=== PATIENT | female | born 1960 ===

== ENCOUNTER 2023-01-03 20:41 | Emergency (ER) | payer MEDICARE, SELFPAY ==
[2023-01-03 20:43] VITALS: BP 126/97; PULSE 108; RESP 20; TEMP 36.4; O2SAT 97
--- OUTSIDE RECORDS SUMMARY | 2023-01-03 20:59 | XMS_ITS | Continuity of Care Document ---
Author Name Unknown Address [address] [place] [address] Phone [facility] Address [address] [place] [address] Phone Care Team Providers Care Selling Underwriter Name Role Phone Rajinder Tavera Primary Care Provider [phone] Rajinder Tavera Family Provider E/R Physician, E Emergency Provider Unavailable Chief Complaint and Reason for Visit Chief Complaint SORE ALL OVER Allergies, Adverse Reactions, Alerts Allergen Type Severity Reaction Last Updated Verified Status Penicillins Allergy Unknown UNKNOWN August 23, 2019 3:39pm Yes Active Social History Smoking Status Status Start Date End Date Date of Observa tion Ex-smoker (finding) August 4:33pm Additional Data Assigned Sex Female Problems Active Problems Medical Problem Onset Date Status Rheumatoid arthritis flare Activ e Inactive/Resolved Problems Medical Problem Onset Date Status Abdominal pain Resolved Medications Medication Status Dose Units Route Directions Qty Days Start Matt e End Date Instructions Prednisone Active 10 MG PO .SEELABEL Jan 8:16am Day 1-2: 4 tabs by mouth. Day 3-4: 3 tabs daily. Day 5-6: 2 tabs daily. Day 7-8: 1 tab daily Tramadol Active 50 MG PO EVERY 6 HOURS February 13, 2021 8:16am Partial fill available on patient request. Vital Signs Vital Reading Result Reference Range Collection Date/Time Height 149.86 cm February 13, 2021 3:06am Weight 95.25 kg November 29th, 2021 3:06am Body Temperature 98.9 [degF] 97.6-99.6 February 132020 3:06am Heart Rate 82 /min 60-90 February 13, 2021 3:06am Respiratory rate 20 /min 12-24 February 132020 3:06am Oxygen saturation by Pulse oximetry 98 % 95-100 February 13, 2021 3:06am BP Systolic 136 mm[Hg] 90-140 February 13, 2021 3:06am BP Diastolic 96 mm[Hg] 60-90 February 13, 2021 3:06am BMI (Body Mass Index) 42.4 kg/m2 Novemb er 2020 3:06am Advance Directives Advance Directive Response Recorded Date/ Time Advance Directives No January 3:30am Health Care Proxy No February 13, 2021 3:30am Insurance Providers Guarantor Tasha Alexander Address [address] [place], [place] [id number] Contact Info. Home Phone: Payer Policy Id Coverage Id Subscriber's Name Subscriber Id Effective Date Expiration Date [facility] (Out of State) [facility] Health Safety Net - Partial [id number] 2016 [facility] [id number] [facility] [id number] [facility] Plans Medicaid [facility] No PSYCHIATRIC [id number] Tasha Alexander [id number] Medicare A&B [id number] Tasha Alexander [id number] 1988 Self Pay Self N/A Encounters Encounter Location(s) Arrival/Admit Date Discharge/Depart Date Provider(s) Departed Emergency [facility]-Emergency Dept February 13, 2021 2:36am February 13, 2021 8:21am null Plan of Treatment Future Tests Future scheduled test information is unavailable Pending Tests Pending diagnostic test information is unavailable Future Visits Future appointment information is unavailable Referrals to Other Providers Reason for Referral Referral Start Date Provider Provider Contact Information Provider Address Rajinder Tavera MD Work Phone: [address] [facility] [place] [address] Future Procedures Future procedure information is unavailable Future Medications Future medication information is unavailable Patient Instructions ED Rheumatoid Arthritis Goals Acute Goals Please return here for sympt oms worsen Please return here immediately for developed chest pain or shortness of breath If you develop fever/chills You popped today to have a prescription for steroids, and some pain medication No driving, medication prescribed are narcotics any make you drowsy Hemoptysis today to be discharged home without seeing a physician The option to have blood work, and another further evaluations by a physician however he politely declined and wished to return home. Even appointment with the negotiations director on March 16, you will call to see if you can expedite that appointment sooner
--- OUTSIDE RECORDS SUMMARY | 2023-01-03 20:59 | XMS_ITS | Continuity of Care Document ---
Author Name Unknown Address [address] [place] [address] Phone [facility] Address [address] [place] [address] Phone Care Team Providers Care Medical Billing Coder Name Role Phone Rajinder Tavera Primary Care Provider [phone] Rajinder Tavera Family Provider MD Edilia Wiggins Attending Provider [phone] Hospitalist, Model (IS ONLY) Emergency Provider Unavailable MD Clarence Robles Attending Provider Chief Complaint and Reason for Visit Chief Complaint DIARRHEA COPD EXACERBATION,TIFFANY,STARVATION KETOACIDOSIS Reason for Visit Acute viral syndrome TIFFANY (acute kidney injury) Hypokalemia Hypomagnesemia Allergies, Adverse Reactions, Alerts Allergen Type Severity Reaction Last Updated Verified Status Penicillins Allergy Unknown UNKNOWN August 19, 2021 9:26pm Yes Active amlodipine Allergy Unknown August 19, 2021 9:26pm Yes Active lisinopril Allergy Unknown August 19, 2021 9:26pm Yes Active valsartan Allergy Unknown August 19, 2021 9:26pm Yes Active Social History Smoking Status Status Start Date End Date Date of Observa tion Ex-smoker (finding) August 3:09am Observation Status Observation Response Date of Response Lives With Family August 20, 2021 3 :09am Additional Data Assigned Sex Female Problems Active Problems Medical Problem Onset Date Status TIFFANY (acute kidney injury) Active Acute viral syndrome Active Hypokalemia Active Hypomagnesemia Active Inactive/Resolved Problems Medical Problem Onset Date Status Rheumatoid arthritis flare Resol tessie Abdominal pain Resolved Medications Medication Status Dose Units Route Directions Qty Days St art Date End Date Instructions Prednisone Active 10 MG PO .SEELABEL Jan 1:00am Day 1-2: 4 tabs by mouth. Day 3-4: 3 tabs daily. Day 5-6: 2 tabs daily. Day 7-8: 1 tab daily Tramadol Active 50 MG PO EVERY 6 HOURS February 13, 2021 1:00am Partial fill available on patient request. Loperamide (Imodium) 2 mg Capsule Active 2 MG PO FOUR TIMES DAILY August 07, 2021 12:00am Lovastatin Active 1 TAB PO DAILY August 07, 2021 12:00am Triamterene-Hy drochlorothiaz id (Dyazide) 37.5-25 mg Capsule Active 1 CAP PO DAILY August 07, 2021 12:00am Pramipexole (Mirapex) 0.25 mg Tablet Active 0.25 MG PO DAILY August 07, 2021 12:00am Omeprazole Active 20 MG PO DAILY August 07, 2021 12:00am Mirtazapine Active 1 TAB PO ONCE JUDIE LY AT BEDTIME August 07, 2021 12:00am Cholestyramine (With Sugar) Active 1 PACKET PO TWICE A DAY August 07, 2021 12:00am Immunizations Immunization Event Date Not Given Reason Dose Number Angiography Nurse Lot Number Vaccine Information Statement (VIS) Detail COVID-19 J&J July 28, 2020 Procedures Procedure Date Performed Status Colonoscopy, Diag w/wo [place] (Not Applicabl e) August 07, 2021 10:20am completed EKG ED Electrocardiogram August 19, 2021 4:39pm c ompleted XR chest 1V August 19, 2021 4:39pm completed Coronavirus COVID-19 (LEXI) activ e Relevant Diagnostic Tests and/or Laboratory Data Laboratory Results Test Date/Time Result Interpretation Reference Range Result Comment Performing Site Add-On Test Request August 20, 2021 7:51am Added test [address] [address] White Blood Count August 20, 2021 5:06am 7.8 X10 3/uL 4.5-11.[address] [address] Red Blood Count August 20, 2021 5:06am 3.89 X10 6/uL 3.70-5.[address] [address] Hemoglobin August 20, 2021 5:06am 11.6 g/dl 11.0-16.[address] [address] Hematocrit August 20, 2021 5:06am 35.1 % 33.5-45.[address] [address] Mean Corpuscular Volume August 20, 2021 5:06am 90.2 fl 80.0-100.[address] [address] Mean Corpuscular Hemoglobin August 20, 2021 5:06am 29.8 pg 27.0-34.[address] [address] Mean Corpuscular Hemoglobin Concent August 20, 2021 5:06am 33.0 g/dl 31.0-36.[address] [address] Red Cell Distribution Width August 20, 2021 5:06am 13.2 % 11.5-15.[address] [address] Platelet Count August 20, 2021 5:06am 316 X10 3/uL 150-[address] [address] Immature Granulocyte % (Auto) August 20, 2021 5:06am 1.0 % [address] [address] Neutrophils (%) (Auto) August 20, 2021 5:06am 76.7 % [address] [address] Lymphocytes (%) (Auto) August 20, 2021 5:06am 11.7 % [address] [address] Monocytes (%) (Auto) August 20, 2021 5:06am 9.6 % [address] [address] Eosinophils (%) (Auto) August 20, 2021 5:06am 0.1 % [address] [address] Basophils (%) (Auto) August 20, 2021 5:06am 0.9 % [address] [address] Immature Granulocyte # (Auto) August 20, 2021 5:06am 0.08 X10 3/uL 0.00-0.[address] [address] Neutrophils # (Auto) August 20, 2021 5:06am 6.0 X10 3/uL 1.5-7.[address] [address] Lymphocytes # (Auto) August 20, 2021 5:06am 0.9 X10 3/uL 1.0-4.[address] [address] Monocytes # (Auto) August 20, 2021 5:06am 0.8 X10 3/uL 0.0-0.[address] [address] Eosinophils # (Auto) August 20, 2021 5:06am 0.0 X10 3/uL 0.0-0.[address] [address] Basophils # (Auto) August 20, 2021 5:06am 0.1 X10 3/uL 0.0-0.[address] [address] Hemoglobin A1c August 20, 2021 5:06am 9.1 4.3-5.[address] [address] Estimated Average Glucose (eAG) August 20, 2021 5:06am 214 mg/dl [address] [address] Nucleated Red Blood Cells % August 20, 2021 5:06am 0.0 /100 WBC 0.0-0.[address] [address] Urine Color August 20, 2021 12:04am Dark yellow Yellow [address] [address] Urine Clarity August 20, 2021 12:04am Turbid Clear [address] [address] Urine pH August 20, 2021 12:04am 5.5 5.0-8.[address] [address] Urine Specific Br[place]ock August 20, 2021 12:04am 1.016 1.005-1.[address] [address] Urine Blood August 20, 2021 12:04am Moderate mg/dL Negative [address] [address] Urine Protein August 20, 2021 12:04am 100 mg/dL Negative [address] [address] Urine Glucose (UA) August 20, 2021 12:04am Negative mg/dl Negative [address] [address] Urine Ketones August 20, 2021 12:04am Trace mg/dL Negative [address] [address] Urine Nitrate August 20, 2021 12:04am Negative Negative [address] [address] Urine Bilirubin August 20, 2021 12:04am Negative mg/dL Negative [address] [address] Urine Urobilinogen August 20, 2021 12:04am 1.0 E.U./dL Normal [address] [address] Urine Leukocyte Esterase August 20, 2021 12:04am Large mg/dL Negative [address] [address] Urine RBC (Auto) August 20, 2021 12:04am Not Reportable [address] [address] Urine WBC (Auto) August 20, 2021 12:04am Not Reportable [address] [address] Urine Epithelial Cells (Auto) August 20, 2021 12:04am Not Reportable [address] [address] Urine Casts (Auto) August 20, 2021 12:04am Not Reportable [address] [address] Urine Bacteria (Auto) August 20, 2021 12:04am Many /HPF None Seen [address] [address] Urine RBC August 20, 2021 12:04am 3-5 /HPF 0-[address] [address] Urine WBC August 20, 2021 12:04am >50 /HPF 0-[address] [address] Urine Squamous Epithelial Cells August 20, 2021 12:04am 0-5 /HPF 0-[address] [address] Urine Hyaline Casts August 20, 2021 12:04am None seen /LPF None Seen [address] [address] Sodium Level August 20, 2021 5:06am 130 mmol/L 137-[address] [address] Potassium Level August 20, 2021 5:06am 3.6 mmol/L 3.5-5.[address] [address] Chloride Level August 20, 2021 5:06am 91 mmol/L 98-[address] [address] Carbon Dioxide Level August 20, 2021 5:06am 25 mmol/L 23-[address] [address] Anion Gap August 20, 2021 5:06am 14 mmol/L 5-[address] [address] Blood Urea Nitrogen August 20, 2021 5:06am 12 mg/dl - [address] [address] Creatinine August 20, 2021 5:06am 0.9 mg/dL 0.5-1.[address] [address] Estimated Creatinine Clearance August 20, 2021 5:06am Pharmacy Intake Coordinator CRCL Not calculated, Ht < 5ft [address] [address] Estimated GFR () August 20, 2021 5:06am 81 >[address] [address] Estimated GFR (Non- August 20, 2021 5:06am 70 >[address] [address] BUN/Creatinine Ratio August 20, 2021 5:06am 13.3 10.0-20.[address] [address] Glucose Level August 20, 2021 5:06am 263 mg/dL 70-[address] [address] Calcium Level August 20, 2021 5:06am 8.5 mg/dl 8.6-10.[address] [address] Magnesium Level August 20, 2021 5:06am 2.1 mg/dL 1.8-2.[address] [address] Total Bilirubin August 19, 2021 6:10pm 0.5 mg/dl <1.[address] [address] Direct Bilirubin August 19, 2021 6:10pm < 0.2 mg/dl <0.[address] [address] Aspartate Amino Transf (AST/SGOT) August 19, 2021 6:10pm 27 U/L 15-[address] [address] Alanine Aminotransferase (ALT/SGPT) August 19, 2021 6:10pm 16 U/L 14-[address] [address] Troponin T High Sensitivity August 19, 2021 8:01pm 14 ng/L <8 Normal range: Females <9 ng/L Males <14 ng/L Values greater than or equal to 52 ng/L indicates acute myocardial injury/infar ction Values between '10 and 51 ng/L' (for females) or '15 and 51 ng/L' (for males) require clinical correlation and is not diagnostic of acute myocardial injury. Consider repeat at 1 and 3 hours. A dynamic increase of ? greater than 5 ng/L? at 1 hour or 3 hours indicates of acute myocardial injury/infar ction. For a patient with an estimated GFR of less than 30 mL/min/1.73 m2 or receiving dialysis, a dynamic increase of greater than 20% at 3 hours indicates acute myocardial injury. A value of less than 9 ng/L (in females) or less than 14 ng/L (in males) with a dynamic change of less than 3 ng/L, greater than 3 hours after symptom onset, generally rules out acute myocardial injury/infar ction. Refer to Chest Pain order sets for additional clinical decision support (using the HEART score for the ED or the DAVIS score for the inpatient setting). [address] [address] Total Protein August 19, 2021 6:10pm 6.9 g/dL 6.4-8.[address] [address] Albumin August 19, 2021 6:10pm 3.6 g/dl 4.0-5.[address] [address] Albumin/Globulin Ratio August 19, 2021 6:10pm 1.1 1.0-2.[address] [address] Alkaline Phosphatase August 19, 2021 6:10pm 92 U/L 35-[address] [address] Lipase August 19, 2021 6:10pm 15 U/L 13-[address] [address] Thyroid Stimulating Hormone (TSH) August 20, 2021 5:06am 1.33 uIU/mL 0.34-5.[address] [address] Venous Blood pH August 20, 2021 12:06am 7.48 7.32-7.[address] [address] Diagnostic Imaging Reports Report Dictated Date/Time Dictated By Status Radiology Report August 19, 2021 5:00pm Siobhan Schrader MD completed [address] [address] Patient Name: Tasha Alexander Medical Record#: [id number] Address: [address] City/State/Zip: [place] [id number] Attending Dr: Ferny E/R Nevin tiwari Insurance: Medicare A&B /Age/Sex: 1960/61/F [facility] No PCC Admit/Reg Date: 08/19/[address]: Martin Scruggs MD Location: ED.GS/ PCP: Rajinder Tavera Date of Service: 08/19/21 Order (s): XR chest 1V CPT Code: 04688 Report Number: [id number] Reason for Exam: Chest Pain INDICATION:Chest Pain AP CHEST: Cardiac and mediastinal contours are normal. The lungs appear clear. There are no pleural effusions or pneumothoraces. Osseous structures are unremarkable. IMPRESSION: No evidence of acute cardiopulmonary disease. Dictated By: Siobhan Schrader MD 08/19/211699 Signed By: Siobhan Schrader MD 08/19/211703 TD/TT: 08/19/211699Tech: [id number] cc: E/R; CK PRYOR* E/R Physician,Ferny ; Martin Scruggs MD; Rajinder Tavera MD Report Dictated Date/Time Dictated By Status Electrocardiogram August 19, 2021 4:43pm Amanda Frey MD completed [facility] [address] [place] [address] Patient Name: Tasha Alexander Medical Record#: [id number] Address: [address] City/State/Zip: [place] [address]: Clarence Robles MD Insurance: Medicare A&B /Age/Sex: 1960/61/F [facility] No PCC Admit/Reg Date: 08/19/[address]: Martin Scruggs MD Location: 3B./[id number] PCP: Soodan,Rajinder Date of Service: 08/19/21 Order (s): EKG ED Electrocardiogram CPT Code: 84682 Report Number: [id number] Reason for Exam: Chest Pain SINUS TACHYCARDIA PROBABLE INFERIOR INFARCT, AGE INDETERMINATE CONSIDER POSTERIOR WALL INVOLVEMENT Dictated By: Amanda Frey MD 08/19/211642 Signed By: Amanda Frey MD 08/20/21 0947 TD/TT: 08/19/211642Tech: [id number] cc: JAZMINE; ROYA* Martin Scruggs MD; Rajinder Tavera MD Vital Signs Vital Reading Result Reference Range Collection Date/Time Height 149.86 cm August 07, 2021 10:22am Weight 97.97 kg August 07, 2021 10:22am Body Temperature 97.5 [degF] 97.6-99.6 August 07, 2 022 10:28am Heart Rate 97 /min 60-90 August 07, 2021 11:41am Respiratory rate 20 /min 12-August 07, 2 022 11:41am Oxygen saturation by Pulse oximetry 96 % 95-100 August 07, 2021 11:41 am BP Systolic 106 mm[Hg] 90-140 August 07, 2021 11:41am BP Diastolic 71 mm[Hg] 60-90 August 07, 2021 11:41am BMI (Body Mass Index) 43.6 kg/m2 August 072021 10:22am Height 149.86 cm August 19, 2021 4:14pm Weight 95.25 kg August 19, 2021 4:14pm Body Temperature 98.1 [degF] 97.6-99.6 August 19, 2 022 4:14pm Heart Rate 84 /min 60-90 August 20, 2021 7:27am Respiratory rate 16 /min -August 20, 2 022 7:27am Oxygen saturation by Pulse oximetry 95 % 95-100 August 20, 2021 7:27a m BP Systolic 110 mm[Hg] 90-140 August 20, 2021 7:27am BP Diastolic 77 mm[Hg] 60-90 August 20, 2021 7:27am BMI (Body Mass Index) 42.4 kg/m2 August 192021 4:14pm Advance Directives Advance Directive Response Recorded Date/ Time Advance Directives No January 4:30am Health Care Proxy No February 13, 2021 4:30am Advance Directives No February 6:12pm Health Care Proxy No March 16, 2021 6:12pm Advance Directives No July 27 2:38pm Health Care Proxy No July 27, 2021 2:38pm Advance Directives No August 19 5:40pm Health Care Proxy No August 19, 2021 5:40pm Insurance Providers Guarantor Tasha Alexander Address [address] [place] [id number] Contact Info. Home Phone: Payer Policy Id Coverage Id Subscriber's Name Subscriber Id Effective Date Expiration Date [facility] (Out of State) [facility] Health Safety Net - Partial [id number] 2016 [facility] [id number] [facility] [id number] [place] [facility] Medicaid [facility] No [facility] [id number] Tasha Alexander [id number] Medicare A&B [id number] Tasha Alexander [id number] 1988 Self Pay Self N/A Encounters Encounter Location(s) Arrival/Admit Date Discharge/Depart Date Provider(s) Departed Surgical Day Care [facility]-Endoscopy August 07, 2021 9:41am August 07, 2021 11:59am Edilia Wiggins MD Admitted Inpatient [facility]-3B August 19, 2021 11:34pm Clarence Robles MD Recent Diagnosis Onset Date Acute viral syndrome TIFFANY (acute kidney injury) Hypokalemia Hypomagnesemia Assessments Diagnosis Onset Date Resolution Status Acute viral syndrome acute TIFFANY (acute kidney injury) ac tribe Hypokalemia acute Hypomagnesemia acute Plan of Treatment Future Tests Future scheduled test information is unavailable Pending Tests Test Name Date ordered Magnesium August 20, 2021 7:51a m VTE Risk Assessment Medical August 19 11:33pm Future Visits Future appointment information is unavailable Referrals to Other Providers Reason for Referral Referral Start Date Provider Provider Contact Information Provider Address Rajinder Tavera MD Work Phone: [address] [facility] [address] Rajinder Tavera MD Work Phone: [address] [facility] [address] Future Procedures Procedure Name Scheduled Date Discharge Per Same Day Surgery Criteria August 07, 2021 11:59am Peripheral IV Insert/Manage August 07 10:19am Hospital Level of Care August 19, 2021 11 :34pm Activity August 19, 2021 11:33 pm Basic Metabolic Panel August 21, 2021 6:0 0am Code Status August 19, 2021 11:33 pm Add Hypoglycemia Protocol Orders August 7:44am Peripheral IV Insert/Manage August 19 11:33pm Saline Lock Insert/Manage August 19, 2021 4:39pm Notify Provider August 20, 2021 7:44a m Oxygen Initiate/Maintain August 19, 2021 4:39pm Patient Preference for Pain Management J 2021 11:34pm Provider Order to Nurse August 20, 2021 5 :02am Continuous Pulse Oximetry August 19, 2021 4:39pm Sequential Compression Device August 19, 2021 11:34pm Future Medications Future medication information is unavailable Patient Instructions ED Rheumatoid Arthritis Goals Acute Goals Potential for Anxiety Knowledge Deficit Pt reports/exhibits pain at sharee level Including: - Pain controlled by pharmacological/non-pharmacological means - Establish realistic pain and function goals prior to initiating opioid therapy in patients with chronic pain if applicable - Discuss known risks and realistic benefits of opioid therapy Knowledge Deficit-Discharge Instruction Alteration in Hemodynamics Potential for Infection Potential for Surgical Injur y Risk for Impaired Skin Integ rity Patent airway Including: - Secretion management strategies Effective breathing pattern Including: - Able to speak in full sentences as age appropriate - Absence of accessory muscle use (retractions), shallow breathing, dyspnea, wheezing & tachypnea - Facilitate optimal positioning - maximize effective breathing & prevent exacerbation Adequate gas exchange Absence of: - Abnormal arterial blood gases - Decreased breath sounds/apnea/cyanosis - Grunting/nasal flaring - Increased respiratory effort/rate - Chest retractions Improved activity tolerance Including: - Progressing activity toward baseline - Understands energy conservation management - Physical/Occupational therapy if appropriate Understand Mgmt Strategy-HERBARIUM CURATOR D Patient/caregiver understands: - Pathophysiology - Reportable s/s & worsening symptoms - Treatment plan, post discharge follow up & when to seek medical care - Medication regime, compliance, dietary & lifestyle modification - technician terminal and repeater plan for care and housing and/or End of life preparations if applicable Safely transition to next le yaw of care Patient/family has: - Appropriate access to resources and support services as applicable Pt reports/exhibits pain at sharee level Including: - Pain controlled by pharmacological/non-pharmacological means - Discuss known risks and realistic benefits of opioid therapy Absence of fluid/electrolyte imbalance Including: - Improved lab values - Adequate urine output - Adequate hydration - Stable weight if appropriate Bowel elimination within spe c parameter Including: - Improved stool consistency and pattern - Hemodynamic stablity - Improved hydration/electrolyte balance - Knowedgeable in self management Absence of nausea/vomiting Including: - [place] foods, cool liquids, dry foods and high-carbohydrate diet - Small, frequent meals - Restrict dairy products Adequate nutritional intake Including: - Adequate nutritional intake - Nutritional plan per dietitian if applicable Understand Mgmt Strategy-Gas troenteritis Patient/caregiver understands: - Anatomy & physiology - Reportable s/s and when to seek medical care - Treatment plan including environmental hygiene - Medication regime and dietary modification Safely transition to next le yaw of care Patient/family has: - Appropriate access to resources and support services as applicable
--- OUTSIDE RECORDS SUMMARY | 2023-01-03 20:59 | XMS_ITS | Continuity of Care Document ---
Author Name Unknown Address [address] [place] [address] Phone [facility] Address [address] [place] [address] Phone Support Name Relationship Address Phone Nithin Alexander Spouse [address] [place] [address] Rajinder Tavera Primary Care Provider [address] [place] [address] Martin Scruggs Emergency Provider [address] [facility]/ [place] [address] Allergies, Adverse Reactions, Alerts Allergen Type Severity Reaction Last Updated Verified Status Penicillins Allergy Unknown UNKNOWN August 23, 2019 Yes Activ e Medications No medication information available. Problems Active Problems Medical Problem Onset Date Status Abdominal pain Active Procedures Procedure Date Performed Status CT abdomen pelvis w con August 23, 2019 complete d EKG ED Electrocardiogram August 23, 2019 active Relevant Diagnostic Tests and/or Laboratory Data Laboratory Results Test Date/Time Result Interpretation Reference Range Result Comment Performing Site White Blood Count August 23, 2019 4:10pm 9.6 X10 3/uL 4.5-11.0 [facility], [address] [place] [address] Red Blood Count August 23, 2019 4:10pm 4.88 X10 6/uL 3.70-5.00 [facility], [address] [place] [address] Hemoglobin August 23, 2019 4:10pm 14.3 g/dl 11.0-16.[address] [address] Hematocrit August 23, 2019 4:10pm 43.7 % 33.5-45.0 [address] [place] [address] Mean Corpuscular Volume August 23, 2019 4:10pm 89.5 fl 80.0-100.[address] [address] Mean Corpuscular Hemoglobin August 23, 2019 4:10pm 29.3 pg 27.0-34.[address] [address] Mean Corpuscular Hemoglobin Concent August 23, 2019 4:10pm 32.7 g/dl 31.0-36.[address] [address] Red Cell Distribution Width August 23, 2019 4:10pm 11.9 % 11.5-15.[address] [address] Platelet Count August 23, 2019 4:10pm 348 X10 3/uL 150-[address] [address] Immature Granulocyte % (Auto) August 23, 2019 4:10pm 0.6 % [facility], [address] [place] [address] Neutrophils (%) (Auto) August 23, 2019 4:10pm 55.9 % [address] [address] Lymphocytes (%) (Auto) August 23, 2019 4:10pm 31.8 % [address] [address] Monocytes (%) (Auto) August 23, 2019 4:10pm 9.0 % [address] [address] Eosinophils (%) (Auto) August 23, 2019 4:10pm 1.7 % [facility], [address] [place] [address] Basophils (%) (Auto) August 23, 2019 4:10pm 1.0 % [address] [address] Immature Granulocyte # (Auto) August 23, 2019 4:10pm 0.06 X10 3/uL 0.00-0.[address] [address] Neutrophils # (Auto) August 23, 2019 4:10pm 5.4 X10 3/uL 1.5-7.8 [facility], [address] [place] [address] Lymphocytes # (Auto) August 23, 2019 4:10pm 3.1 X10 3/uL 1.0-4.8 [facility], [address] [place] [address] Monocytes # (Auto) August 23, 2019 4:10pm 0.9 X10 3/uL 0.0-0.8 [facility], [address] [place] [address] Eosinophils # (Auto) August 23, 2019 4:10pm 0.2 X10 3/uL 0.0-0.5 [facility], [address] [place] [address] Basophils # (Auto) August 23, 2019 4:10pm 0.1 X10 3/uL 0.0-0.[address] [address] Nucleated Red Blood Cells % August 23, 2019 4:10pm 0.0 /100 WBC 0.0-0.0 [facility], [address] [place] [address] Urine Color August 23, 2019 4:50pm Straw Yellow [facility], [address] [place] [address] Urine Clarity August 23, 2019 4:50pm Clear Clear [facility], [address] [place] [address] Urine pH August 23, 2019 4:50pm 6.0 5.0-8.[address] [address] Urine Specific [place] August 23, 2019 4:50pm 1.008 1.003-1.03 0 [facility], [address] [place] [address] Urine Blood August 23, 2019 4:50pm Negative mg/dl Negative [address] [address] Urine Protein August 23, 2019 4:50pm Negative mg/dl Negative [address] [address] Urine Glucose (UA) August 23, 2019 4:50pm Negative mg/dl Negative [address] [address] Urine Ketones August 23, 2019 4:50pm Negative mg/dl Negative [facility], [address] [place] [address] Urine Nitrate August 23, 2019 4:50pm Negative Negative [facility], [address] [place] [address] Urine Bilirubin August 23, 2019 4:50pm Negative mg/dl Negative [facility], [address] [place] [address]268 Urine Urobilinogen August 23, 2019 4:50pm Normal mg/dl Normal [facility], [address] [place] [address] Urine Leukocyte Esterase August 23, 2019 4:50pm Negative Negative [facility], [address] [place] [address] Sodium Level August 23, 2019 4:10pm 139 mmol/L 137-146 [facility], [address] [place] [address] Potassium Level August 23, 2019 4:10pm 3.8 mmol/L 3.5-5.3 [facility], [address] [place] [address] Chloride Level August 23, 2019 4:10pm 98 mmol/L 98-107 [facility], [address] [place] [address] Carbon Dioxide Level August 23, 2019 4:10pm 28 mmol/L 23-32 [facility], [address] [place] [address] Anion Gap August 23, 2019 4:10pm 13 mmol/L 5-15 [facility], [address] [place] [address] Blood Urea Nitrogen August 23, 2019 4:10pm 15 mg/dl 5-25 [facility], [address] [place] [address] Creatinine August 23, 2019 4:10pm 0.9 mg/dL 0.5-1.[address] [address] Estimated Creatinine Clearance August 23, 2019 4:10pm 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 Unable to Calculate CRCL,Ht and/or Wt missing [facility], [address] [place] [address] Estimated GFR () August 23, 2019 4:10pm > 60 >[address] [address] Estimated GFR (Non- August 23, 2019 4:10pm > 60 >60 [place] [address] BUN/Creatinine Ratio August 23, 2019 4:10pm 16.7 10.0-20.0 [place] [address] Glucose Level August 23, 2019 4:10pm 217 mg/dL 70-100 [place] [address] Calcium Level August 23, 2019 4:10pm 9.5 mg/dl 8.6-10.3 [place] [address] Total Bilirubin August 23, 2019 4:10pm < 0.2 mg/dl <1.2 [place] [address] Aspartate Amino Transf (AST/SGOT) August 23, 2019 4:10pm 19 U/L 15-41 [place] [address] Alanine Aminotransferase (ALT/SGPT) August 23, 2019 4:10pm 21 U/L 14-54 [place] [address] Total Protein August 23, 2019 4:10pm 6.8 g/dL 6.4-8.3 [place] [address] Albumin August 23, 2019 4:10pm 3.9 g/dl 4.0-5.0 [place] [address] Albumin/Globulin Ratio August 23, 2019 4:10pm 1.3 1.0-2.6 [place] [address] Alkaline Phosphatase August 23, 2019 4:10pm 88 U/L 35-104 [place] [address] Bedside Urine HCG, Qualitative August 23, 2019 5:27pm Negative Negative This is only a screening test. Low HCG urine level (<20mIU/ml), in case of a early or dilution of urine, may not be detected with this test. Also high concentration of certain drugs may interfere. If suspicious of early or clinically necessary to confirm, a serum Beta-HCG quantitation test is suggested. [facility], [address] [facility] [address] Diagnostic Imaging Reports Report Dictated Date/Time Dictated By Status Radiology Report August 23, 2019 6:31pm Canelo Hameed MD completed [facility] [address] [place] [address] Patient Name: Tasha Alexander Medical Record#: [id number] Address: [address] [facility] City/State/Zip: [place] [id number] Attending Dr: Martin Scruggs MD Insurance: Medicare A&B /Age/Sex: 1960/59/F [employer] No PCC Admit/Reg Date: 08/23/[address]: Harmony Moseley NP Location: ED.[facility]/ PCP: Rajinder Tavera Date of Service: 08/23/19 Order (s): CT abdomen pelvis w con CPT Code: 06239 Report Number: [id number] Reason for Exam: rlq abd pain CT abdomen pelvis w con, 08/23/2019 5:51 PM Clinical history: rlq abd pain TECHNIQUE: Spiral CT of the abdomen and pelvis is performed with intravenous contrast. The patient received 90-ML of IV contrast. Additional delayed images are obtained through the abdomen. COMPARISON: 05/31/15 ABDOMINAL FINDINGS: The liver is diffusely low in attenuation. 3 cm left renal cyst is noted. The right intrarenal collecting system is duplicated. 2 right ureters are noted. The spleen, pancreas, and adrenal glands are unremarkable. The gallbladder is surgically absent. There is no retroperitoneal lymphadenopathy. The abdominal aorta is normal in course and caliber. PELVIC FINDINGS: There are no dilated loops of small bowel. There is prominent sigmoid diverticulosis. The appendix is normal. There is a small fat-containing right inguinal hernia. There is no free fluid or lymphadenopathy. The urinary bladder appears unremarkable. IMPRESSION: No evidence of acute pathology. Fatty infiltration of the liver. Left renal cyst. 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 Sigmoid diverticulosis. Small fat-containing right inguinal hernia. Automated exposure control and dose reduction techniques were utilized. Dictated By: Canelo Hameed MD 08/23/191830 Signed By: Canelo Hameed MD 08/23/191836 TD/TT: 08/23/191830Tech: [id number] cc: CHRIST; JAZMINE; ROYA* Martin Scruggs MD; Harmony Moseley, AYAN; Rajinder Tavera Advance Directives Advance Directive Response Recorded Date/ Time Advance Directives No August 22 0 8:27pm Health Care Proxy No August 23, 2019 8:27pm Chief Complaint and Reason for Visit Chief Complaint sent by urgent care, appendicitis? Encounters Encounter Location(s) Arrival/Admit Date Discharge/Depart Date Provider(s) Departed Emergency [facility] August 23, 2019 3:46pm August 23, 2019 7:56pm null Assessments No Assessments Information Available Functional Status No Functional Status information available Goals Goals may be documented in an alternate section. Mental Status No Mental Status Information Available Medical Equipment No Medical Equipment Information available Insurance Providers Guarantor Tasha Alexander Address [address] [facility] [address] Contact Info. Home Phone: Payer Policy Id Coverage Id Subscriber's Name Subscriber Id Effective Date Expiration Date [facility] Health Safety Net - Partial [id number] 2016 [facility] [id number] [facility] [id number] United [employer] Plans Medicaid [facility] [id number] Tasha Alexander [id number] Medicare A&B [id number] Tasha Alexander [id number] 1988 Self Pay Self N/A Plan of Treatment Future Tests Future scheduled test information is unavailable Pending Tests Pending diagnostic test information is unavailable Future Visits Future appointment information is unavailable Referrals to Other Providers Reason for Referral Referral Start Date Provider Provider Contact Information Provider Address Rajinder Tavera Work Phone: [address] [facility] [address] Future Procedures Future procedure information is unavailable Future Medications Future medication information is unavailable Patient Instructions Abdominal Pain Social History Smoking Status Status Date of Observation Ex-smoker (finding) August 23, 2019 4:33p m Assigned Sex Female Vital Signs Vital Reading Result Reference Range Collection Date/Time Body Temperature 98.1 [degF] 97.6-99.6 August 22, 2 020 3:56pm Heart Rate 89 /min 60-90 August 23, 2019 3:56pm Respiratory rate 18 /min 12-24 August 22 020 3:56pm Oxygen saturation by Pulse oximetry 97 % 95-10 0 August 23, 2019 3:56pm BP Systolic 120 mm[Hg] 90-140 August 23, 2019 3:56pm BP Diastolic 96 mm[Hg] 60-90 August 23, 2019 3:56pm
--- OUTSIDE RECORDS SUMMARY | 2023-01-03 20:59 | XMS_ITS | Continuity of Care Document ---
Author Name Unknown Address [address] [place] [address] Phone [facility] Address [address] [place] [address] Phone Care Team Providers Care Ash Handler Name Role Phone Rajinder Tavera Primary Care Provider Rajinder Tavera Family Provider MD Edilia Wiggins Attending Provider [phone] Chief Complaint and Reason for Visit Chief Complaint DIARRHEA Allergies, Adverse Reactions, Alerts Allergen Type Severity Reaction Last Updated Verified Status Penicillins Allergy Unknown UNKNOWN August 07, 2021 10:17am Yes Active amlodipine Allergy Unknown August 07, 2021 10:17am Yes Active lisinopril Allergy Unknown August 07, 2021 10:17am Yes Active valsartan Allergy Unknown August 07, 2021 10:17am Yes Active Social History Smoking Status Status Start Date End Date Date of Observa tion Ex-smoker (finding) August 4:33pm Additional Data Assigned Sex Female Problems Inactive/Resolved Problems Medical Problem Onset Date Status [...] Event Date Not Given Reason Dose Number 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 Lot 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 Vaccine Information Statement (VIS) Detail COVID-19 [employer] July 28, 2020 Procedures Procedure Date Performed Status Colonoscopy, Diag w/wo Pound/Wash (Not Applicabl e) August 07, 2021 10:20am completed Vital Signs Vital Reading Result Reference Range [...] Mass Index) 43.6 kg/m2 August 072021 10:22am Advance Directives Advance Directive Response Recorded Date/ Time Advance Directives No January 4:30am Health Care Proxy No February 13, 2021 4:30am Advance Directives No February 6:12pm Health Care Proxy No March 16, 2021 6:12pm Advance Directives No July 27 2:38pm Health Care Proxy No July 27, 2021 2:38pm Insurance Providers Guarantor Tasha Alexander Address [address] [facility] [address] Contact Info. Home Phone: Payer Policy Id Coverage Id Subscriber's Name Subscriber Id Effective Date Expiration Date [employer] (Out of State) [facility] Health Safety Net - Partial [id number] 2016 [facility] [id number] [facility] [id number] [facility] [id number] Tasha Alexander [id number] Medicare A&B [id number] Tasha Alexander [id number] 1988 Self Pay Self N/A Encounters Encounter Location(s) Arrival/Admit Date Discharge/Depart Date Provider(s) Departed Surgical Day Care [facility] August 07, 2021 9:41am August 07, 2021 11:59am Edilia Wiggins MD Plan of Treatment Future Tests Future scheduled test information is unavailable Pending Tests Pending diagnostic test information is unavailable Future Visits Future appointment information is unavailable Referrals to Other Providers Reason for Referral Referral Start Date Provider Provider Contact Information Provider Address Rajinder Tavera MD Work Phone: [address] [facility] [address] Rajinder Tavera MD Work Phone: [address] [facility] [address] Future Procedures Procedure Name Scheduled Date Discharge Per Same Day Surgery Criteria August 07, 2021 11:59am Peripheral IV Insert/Manage August 07 10:19am Future Medications Future medication information is unavailable [...] Injur y Risk for Impaired Skin Integ evan
--- OUTSIDE RECORDS SUMMARY | 2023-01-03 20:59 | XMS_ITS | Continuity of Care Document ---
Author Name Unknown Address [address] [place] [address] Phone [facility] Address [address] [place] [address] Phone Care Team Providers Care [employer] Police Officer Name Role Phone Rajinder Tavera Primary Care Provider Rajinder Tavera Family Provider MD Edilia Wiggins Attending Provider Hospitalist, Model (IS ONLY) Emergency Provider Unavailable MD Clarence Robles Attending Provider MD Justin Bravo Other Provider MD Christian Chowdhury Other Provider [phone] Chief Complaint and Reason for Visit Chief Complaint DIARRHEA COPD EXACERBATION,TIFFANY,STARVATION KETOACIDOSIS Reason for Visit Acute viral syndrome TIFFANY (acute kidney injury) Diabetes mellitus Major depression Type 2 diabetes mellitus, uncontrolled Obesity, morbid, BMI 40.0-49.9 Hypokalemia Hypomagnesemia Hyponatremia Allergies, Adverse Reactions, Alerts Allergen Type Severity [...] Date of Observa tion Ex-smoker (finding) August 12:12pm Observation Status Observation Response Date of Response Is Anyone Dependent on your Care? No August 20, 2021 10:53am Living Situation Private Home August 21, 2021 8:05am Services Prior to Admission None August 21, 2021 12:12pm Lives With Parents August 21, 2021 1 2:12pm Additional Data Assigned Sex Female Family History Relationship Condition Age at Onset Recorded Date/T blayne mother Diabetes mellitus Unknown father Diabetes mellitus Unknown Problems Active Problems Medical Problem Onset Date Status TIFFANY (acute kidney injury) Active Major depression Active Diabetes mellitus Active Acute viral syndrome Active Type 2 diabetes mellitus, uncontrolled Active Obesity, morbid, BMI 40.0-49.9 A ctive Inactive/Resolved Problems Medical Problem Onset Date Status Hyponatremia Resolved Rheumatoid arthritis flare Resol tessie Abdominal pain Resolved Hypokalemia Resolved Hypomagnesemia Resolved Medications Medication Status Dose Units Route Directions Qty Days St art Date End Date Instructions Prednisone Discontin ued 10 MG PO .SEELABEL r 2020 1:00am August 20, 2021 10:29 am Day 1-2: 4 tabs by mouth. Day 3-4: 3 tabs daily. Day 5-6: 2 tabs daily. Day 7-8: 1 tab daily Tramadol Discontin ued 50 MG PO EVERY 6 HOURS r 2020 1:00am August 20, 2021 10:33 am Partial fill available on patient request. Loperamide Active 2 MG PO FOUR TIME S DAILY August 07, 2021 12:00am Lovastatin Active 1 TAB PO DAILY August 07, 2021 12:00am Triamterene-H ydrochlorothi azid Active 1 CAP PO DAILY August 07, 2021 12:00am Pramipexole (Mirapex) 0.25 mg Tablet Active 0.25 MG PO DAILY August 07, 2021 12:00am Omeprazole Active 20 MG PO DAILY August 07, 2021 12:00am Mirtazapine Active 1 TAB PO ONCE JUDIE LY AT BEDTIME August 07, 2021 12:00am Cholestyramin e (With Sugar) Active 1 PACKET PO TWICE A DAY August 07, 2021 12:00am prednisone Active 5 MG PO DAILY August 20, 2021 12:00am Dextromethorp mccarty-Guaifenes in Active 10 ML PO EVERY 6 HOURS 200 5 August 22, 2021 12:00am OTC/Good Rx if not covered Glipizide Active 5 MG PO DAILY August 22, 2021 12:00am Albuterol Sulfate Active 2 PUFF INH EVERY 4 HOURS 1 30 August 22, 2021 12:00am Good Rx if not covered Immunizations Immunization Event Date Not Given Reason Dose Number Home Health Aide Caregiver Lot Number Vaccine Information Statement (VIS) Detail COVID-19 J&J July 28, 2020 Procedures Procedure Date Performed Status Colonoscopy, Diag w/wo [place] (Not Applicabl e) August 07, 2021 10:20am completed EKG ED Electrocardiogram August 19, 2021 4:39pm c ompleted XR chest 1V August 19, 2021 4:39pm completed Urine Culture completed Coronavirus COVID-19 (LEXI) compl eted Relevant Diagnostic Tests and/or Laboratory Data Laboratory Results Test Date/Time Result Interpretation Reference Range Result Comment Performing Site Add-On Test Request August 20, 2021 2:03pm Added test [address] [address] White Blood Count August 20, 2021 5:06am 7.8 X10 3/uL 4.5-11.[address] [address] Red Blood Count August 20, 2021 5:06am 3.89 X10 6/uL 3.70-5.[address] [address] Hemoglobin August 20, 2021 5:06am 11.6 g/dl 11.0-16.[address] [address] Hematocrit August 20, 2021 5:06am 35.1 % 33.5-45.[address] [address] Mean Corpuscular Volume August 20, 2021 5:06am 90.2 fl 80.0-100.[address] [address] Mean Corpuscular Hemoglobin August 20, 2021 5:06am 29.8 pg 27.0-34.[address] [address] Mean Corpuscular Hemoglobin Concent August 20, 2021 5:06am 33.0 g/dl 31.0-36.[address] [address] Red Cell Distribution Width August 20, 2021 5:06am 13.2 % 11.5-15.[address] [address] Platelet Count August 20, 2021 5:06am 316 X10 3/uL 150-[address] [address] Immature Granulocyte % (Auto) August 20, 2021 5:06am 1.0 % [address] [address] Neutrophils (%) (Auto) August 20, 2021 5:06am 76.7 % [address] [address] Lymphocytes (%) (Auto) August 20, 2021 5:06am 11.7 % [address] [address] Monocytes (%) (Auto) August 20, 2021 5:06am 9.6 % [address] [address] Eosinophils (%) (Auto) August 20, 2021 5:06am 0.1 % [address] [address] Basophils (%) (Auto) August 20, 2021 5:06am 0.9 % [address] [address] Immature Granulocyte # (Auto) August 20, 2021 5:06am 0.08 X10 3/uL 0.00-0.[address] [address] Neutrophils # (Auto) August 20, 2021 5:06am 6.0 X10 3/uL 1.5-7.[address] [address] Lymphocytes # (Auto) August 20, 2021 5:06am 0.9 X10 3/uL 1.0-4.[address] [address] Monocytes # (Auto) August 20, 2021 5:06am 0.8 X10 3/uL 0.0-0.[address] [address] Eosinophils # (Auto) August 20, 2021 5:06am 0.0 X10 3/uL 0.0-0.[address] [address] Basophils # (Auto) August 20, 2021 5:06am 0.1 X10 3/uL 0.0-0.[address] [address] Hemoglobin A1c August 20, 2021 5:06am 9.1 4.3-5.[address] [address] Estimated Average Glucose (eAG) August 20, 2021 5:06am 214 mg/dl [address] [address] Nucleated Red Blood Cells % August 20, 2021 5:06am 0.0 /100 WBC 0.0-0.[address] [address] Urine Color August 20, 2021 12:04am Dark yellow Yellow [address] [address] Urine Clarity August 20, 2021 12:04am Turbid Clear [address] [address] Urine pH August 20, 2021 12:04am 5.5 5.0-8.[address] [address] Urine Specific [place] August 20, 2021 12:04am 1.016 1.005-1.[address] [address] Urine Blood August 20, 2021 12:04am Moderate mg/dL Negative [address] [address] Urine Protein August 20, 2021 12:04am 100 mg/dL Negative [address] [address] Urine Glucose (UA) August 20, 2021 12:04am Negative mg/dl Negative [address] [address] Urine Ketones August 20, 2021 12:04am Trace mg/dL Negative [address] [address] Urine Nitrate August 20, 2021 12:04am Negative Negative [address] [address] Urine Bilirubin August 20, 2021 12:04am Negative mg/dL Negative [address] [address] Urine Urobilinogen August 20, 2021 12:04am 1.0 E.U./dL Normal [address] [address] Urine Leukocyte Esterase August 20, 2021 12:04am Large mg/dL Negative [address] [address] Urine RBC (Auto) August 20, 2021 12:04am Not Reportable [address] [address] Urine WBC (Auto) August 20, 2021 12:04am Not Reportable [address] [address] Urine Epithelial Cells (Auto) August 20, 2021 12:04am Not Reportable [address] [address] Urine Casts (Auto) August 20, 2021 12:04am Not Reportable [address] [address] Urine Bacteria (Auto) August 20, 2021 12:04am Many /HPF None Seen [address] [address] Urine RBC August 20, 2021 12:04am 3-5 /HPF 0-[address] [address] Urine WBC August 20, 2021 12:04am >50 /HPF 0-[address] [address] Urine Squamous Epithelial Cells August 20, 2021 12:04am 0-5 /HPF 0-[address] [address] Urine Hyaline Casts August 20, 2021 12:04am None seen /LPF None Seen [address] [address] Sodium Level August 21, 2021 5:28am 137 mmol/L 137-[address] [address] Potassium Level August 21, 2021 5:28am 3.5 mmol/L 3.5-5.[address] [address] Chloride Level August 21, 2021 5:28am 101 mmol/L 98-[address] [address] Carbon Dioxide Level August 21, 2021 5:28am 24 mmol/L 23-[address] [address] Anion Gap August 21, 2021 5:28am 12 mmol/L -[address] [address] Blood Urea Nitrogen August 21, 2021 5:28am 13 mg/dl - [address] [address] Creatinine August 21, 2021 5:28am 1.0 mg/dL 0.5-1.[address] [address] Estimated Creatinine Clearance August 21, 2021 5:28am Obstetrics Gynecology Physician CRCL Not calculated, Ht < 5ft [address] [address] Estimated GFR () August 21, 2021 5:28am 71 >[address] [address] Estimated GFR (Non- August 21, 2021 5:28am 62 >[address] [address] BUN/Creatinine Ratio August 21, 2021 5:28am 13.0 10.0-20.[address] [address] Glucose Level August 21, 2021 5:28am 180 mg/dL 70-[address] [address] Calcium Level August 21, 2021 5:28am 8.5 mg/dl 8.6-10.[address] [address] Magnesium Level August 21, 2021 5:28am 1.8 mg/dL 1.8-2.[address] [address] Total Bilirubin August 19, 2021 6:10pm 0.5 mg/dl <1.[address] [address] Direct Bilirubin August 19, 2021 6:10pm < 0.2 mg/dl <0.[address] [address] Aspartate Amino Transf (AST/SGOT) August 19, 2021 6:10pm 27 U/L 15-[address] [address] Alanine Aminotransferas e (ALT/SGPT) August 19, 2021 6:10pm 16 U/L 14-[address] [address] Troponin T High Sensitivity August 19, 2021 8:01pm 14 ng/L <8 Normal range: Females <9 ng/L Males <14 ng/L Values greater than or equal to 52 ng/L indicates acute myocardial injury/infarc tion Values between '10 and 51 ng/L' (for females) or '15 and 51 ng/L' (for males) require clinical correlation and is not diagnostic of acute myocardial injury. Consider repeat at 1 and 3 hours. A dynamic increase of ? greater than 5 ng/L? at 1 hour or 3 hours indicates of acute myocardial injury/infarc tion. For a patient with an estimated GFR [...] symptom onset, generally rules out acute myocardial injury/infarc tion. Refer to Chest Pain order sets for additional clinical decision support (using the HEART score for the ED or the DAVIS score for the inpatient setting). [address] [address] Total Protein August 19, 2021 6:10pm 6.9 g/dL 6.4-8.[address] [address] Albumin August 19, 2021 6:10pm 3.6 g/dl 4.0-5.[address] [address] Albumin/Globuli n Ratio August 19, 2021 6:10pm 1.1 1.0-2.[address] [address] Alkaline Phosphatase August 19, 2021 6:10pm 92 U/L 35-[address] [address] Lipase August 19, 2021 6:10pm 15 U/L 13-[address] [address] Thyroid Stimulating Hormone (TSH) August 20, 2021 5:06am 1.33 uIU/mL 0.34-5.[address] [address] Cortisol AM Sample August 21, 2021 5:28am 13.07 ug/dL 6.02-18.4 [facility] [address] [facility] [address] Procalcitonin August 20, 2021 5:06am 0.80 ng/mL <0.[address] [address] Urine Random Sodium August 21, 2021 6:20am < 20 mmol/L No Normals Available [address] [address] Urine Random Potassium August 21, 2021 6:20am 18.7 mmol/L No Normals Available [address] [address] Urine Random Chloride August 21, 2021 6:20am 25 mmol/L No Normals Available [address] [address] Bedside Glucose August 22, 2021 4:24pm 229 mg/dl 70-100 NOTE: Any discrepancy between finger stick glucose result and patient's clinical presentation should be confirmed by the laboratory. [address] [address] Venous Blood pH August 20, 2021 12:06am 7.48 7.32-7.[address] [address] Microbiology Results Procedure Source Result Collection Date/Time Result Date/Time Result Comment Performing Site Urine Culture Urine,Scott an Catch Escherichia coli August 22, 2021 8:16am [facility] [address] [facility] [address] Coronavirus COVID-19 (LEXI) Nares, Both Left & Right August 20, 2021 3:16pm [facility] [address] [facility] [address] Diagnostic Imaging Reports Report Dictated Date/Time Dictated By Status Radiology Report August 19, 2021 5:00pm Siobhan Schrader MD completed [facility] [address] [place] [address] Patient Name: Tasha Alexander Medical Record#: [id number] Address: [address] [place] [address] City/State/Zip: [place] [id number] Attending Dr: Ferny E/R Nevin tiwari Insurance: Medicare A&B /Age/Sex: 1960/61/F [employer] No PCC Admit/Reg Date: 08/19/[address]: Martin Scruggs MD Location: ED.GS/ PCP: Rajinder Tavera Date of Service: 08/19/21 Order (s): XR chest 1V CPT Code: 28237 Report Number: [id number] Reason for Exam: Chest Pain INDICATION:Chest Pain AP CHEST: Cardiac and mediastinal contours are normal. The lungs appear clear. There are no pleural effusions or pneumothoraces. Osseous structures are unremarkable. IMPRESSION: No evidence of acute cardiopulmonary disease. Dictated By: Siobhan Schrader MD 08/19/211699 Signed By: Siobhan Schrader MD 08/19/211703 TD/TT: 08/19/211699Tech: [id number] cc: E/R; CK PRYOR* E/R Physician,E ; Martin Scruggs MD; Rajinder Tavera MD Report Dictated Date/Time Dictated By Status Electrocardiogram August 19, 2021 4:43pm Amanda Frey MD completed [facility] [address] [place] [address] Patient Name: Tasha Alexander Medical Record#: [id number] Address: [address] [facility] City/State/Zip: [place] [address]: Clarence Robles MD Insurance: Medicare A&B /Age/Sex: 1960/61/F [employer] [facility] No PCC Admit/Reg Date: 08/19/[address]: Martin Scruggs MD [id number] P[facility]: Rajinder Tavera Date of Service: 08/19/21 Order (s): EKG ED Electrocardiogram CPT Code: 36670 Report Number: [id number] Reason for Exam: Chest Pain SINUS TACHYCARDIA PROBABLE INFERIOR INFARCT, AGE INDETERMINATE CONSIDER POSTERIOR WALL INVOLVEMENT Dictated By: Amanda Frey MD 08/19/211642 Signed By: Amanda Frey MD 08/20/21946 TD/TT: 08/19/21 164Tech: BROCK cc: JAZMINE; ROYA* Martin Scruggs MD; Rajinder Tavera MD Vital Signs Vital Reading Result Reference Range Collection Date/Time Height 149.86 cm August 07, 2021 10:22am Weight 97.97 kg August 07, 2021 10:22am Body Temperature 97.5 [degF] 97.6-99.6 August 07, 2 022 10:28am Heart Rate 97 /min 60-90 August 07, 2021 11:41am Respiratory rate 20 /min 12-24 August 07, 2 022 11:41am Oxygen saturation by Pulse oximetry 96 % 95-100 August 07, 2021 11:41 am BP Systolic 106 mm[Hg] 90-140 August 07, 2021 11:41am BP Diastolic 71 mm[Hg] 60-90 August 07, 2021 11:41am BMI (Body Mass Index) 43.6 kg/m2 August 072021 10:22am Height 150 cm August 21, 2021 11:35am Weight 96.79 kg August 20, 2021 11:09am Body Temperature 97.7 [degF] 97.6-99.6 August 22, 2 022 4:06pm Heart Rate 82 /min 60-90 August 22, 2021 4:06pm Respiratory rate 18 /min 12-24 August 22, 2 022 4:06pm Oxygen saturation by Pulse oximetry 93 % 95-100 August 22, 2021 4:06p m BP Systolic 101 mm[Hg] 90-140 August 22, 2021 4:06pm BP Diastolic 73 mm[Hg] 60-90 August 22, 2021 4:06pm BMI (Body Mass Index) 43.0 kg/m2 August 212021 11:35am Advance Directives Advance Directive Response Recorded Date/ Time Advance Directives No January 4:30am Health Care Proxy No February 13, 2021 4:30am Advance Directives No February 6:12pm Health Care Proxy No March 16, 2021 6:12pm Advance Directives No July 27 2:38pm Health Care Proxy No July 27, 2021 2:38pm Advance Directives No August 21 12:12pm Health Care Proxy No August 21, 2021 12:12pm Pt has Medical Orders for Li fe Sustaining Tx Form (MOLST)? No August 21, 2021 12:12pm Insurance Providers Guarantor Tasha Alexander Address [address] [phone] Contact Info. Home Phone: Payer Policy Id Coverage Id Subscriber's Name Subscriber Id Effective Date Expiration Date [facility] (Out of State) [facility] Health Safety Net - Partial [id number] 2016 [facility] [id number] [facility] [id number] [place] [facility] [id number] Tasha Alexander [id number] Medicare A&B [id number] Tasha Alexander [id number] 1988 Self Pay Self N/A Encounters Encounter Location(s) Arrival/Admit Date Discharge/Depart Date Provider(s) Departed Surgical Day Care [facility]-Endoscopy August 07, 2021 9:41am August 07, 2021 11:59am Edilia Wiggins MD Discharged Inpatient [facility]-3B August 19, 2021 11:34pm August 22, 2021 6:17pm Clarence Robles MD Recent Diagnosis Onset Date Acute viral syndrome TIFFANY (acute kidney injury) Diabetes mellitus Major depression Type 2 diabetes mellitus, uncontrolled Obesity, morbid, BMI 40.0-49.9 Hypokalemia Hypomagnesemia Hyponatremia Functional Status Observation Response Date Recorded Assistive Devices Cane August 21, 2021 12:12pm Ambulation Tolerance Fair August 22, 2 11:39am Date of Last Bowel Movement 08/21/21 August 22, 2021 11:55am Oral Care Mouth Rinse August 22, 2021 1 1:39am Mental Status Observation Response Date Recorded Arousable To Name August 22, 2021 1 1:55am Patient Behavior Appropriate August 22, 2021 11:55am Cooperative August 22, 2021 1 1:55am Comprehension Ability Understands Concepts August 22, 2021 11:55am Level of Consciousness Awake August 22, 2021 11:55am Alert August 22, 2021 1 1:55am Appropriate August 22, 2021 1 1:55am Follows Commands August 22, 2021 11:55am Assessments Diagnosis Onset Date Resolution Status Acute viral syndrome acute TIFFANY (acute kidney injury) [facility] [place] Diabetes mellitus acute Major depression acute Type 2 diabetes mellitus, uncontrolled acute Obesity, morbid, BMI 40.0-49.9 chronic Hypokalemia resolved Hypomagnesemia resolved Hyponatremia resolved Plan of Treatment Future Tests Future scheduled test information is unavailable Pending Tests Test Name Date ordered VTE Risk Assessment Medical August 19 11:33pm Future Visits Future appointment information is unavailable Referrals to Other Providers Reason for Referral Referral Start Date Provider Provider Contact Information Provider Address Rajinder Tavera MD Work Phone: [address] [facility] [address] Rajinder Tavera MD Work Phone: [address] [facility] [address] Edilia Wiggins MD Work Phone: [facility] [address] [place] [phone] CALLED AND LEFT MESSAGE AT PCP OFFICE FOR THEM TO CALL PATIENT WITH ONE WEEK D/C APPOINTMENT( IS NOT AN ACTUAL APPOINTMENT) Rajinder Tavera MD Work Phone: [address] [facility] [address] Future Procedures Procedure Name Scheduled Date Discharge Per Same Day Surgery Criteria August 07, 2021 11:59am Peripheral IV Insert/Manage August 07 10:19am Hospital Level of Care August 19, 2021 11 :34pm Discharge August 22, 2021 4:35p m Nutrition Consult August 21, 2021 7:32a m Nutrition Consult August 21, 2021 9:04a m Diazo Technician Consult August 20, 2021 1 1:54am Activity August 19, 2021 11:33 pm Endocrinology Consult August 20, 2021 3:4 1pm Add Hypoglycemia Protocol Orders August 7:44am Peripheral IV Insert/Manage August 19 11:33pm Saline Lock Insert/Manage August 19, 2021 4:39pm Notify Provider August 20, 2021 7:44a m Oxygen Initiate/Maintain August 19, 2021 4:39pm Patient Preference for Pain Management J 2021 11:34pm Provider Order to Nurse August 20, 2021 5 :02am Psychiatry Consult August 22, 2021 10:58 am Continuous Pulse Oximetry August 19, 2021 4:39pm Sequential Compression Device August 19, 2021 11:34pm Future Medications Future medication information is unavailable Patient Instructions ED Rheumatoid Arthritis Glipizide Oral Tablet 5 mg Dextromethorphan/Guaifenesin Oral Solution 5 mg/100 mg per 5 mL COPD Diabetes Diabetes: Living Your Life Goals Acute Goals You evaluated for COPD, diab etes mellitus, major depression. Currently open optimized and will be discharged home with plan to follow up with mental health practitioners as recommended by the social media community manager team. Please follow-up with primary care doctor next 7 days for further management of your COPD including pulmonary function testing and diabetes mellitus. If you have any worsening of symptoms return to care. Please follow-up with your dianetic counselor as previously scheduled. Potential for Anxiety Knowledge Deficit Pt reports/exhibits [...] - Physical/Occupational therapy if appropriate Understand Mgmt Strategy-FUR NAILER D Patient/caregiver understands: - Pathophysiology - Reportable s/s & worsening symptoms - Treatment plan, post discharge follow up & when to seek medical care - Medication regime, compliance, dietary & lifestyle modification - [facility] plan for care and housing and/or End of life preparations if applicable Safely transition to [facility] of care Patient/family has: - Appropriate access [...] self management Absence of nausea/vomiting Including: - Dodge foods, cool liquids, dry foods and high-carbohydrate [...] and dietary modification Safely transition to next [facility] of care Patient/family has: - Appropriate access to resources and support services as applicable Skin integrity intact - No evidence of impaired skin integrity - Patient/caregivers participating in preventative measures Absence of falls Including: - Early & often mobilization when appropriate - Passive/active range of motion as appropriate - toileting schedule implementation - implementation of fall risk interventions Glucose level within specifi ed parameter Understand Mgmt Strategy-DKA Patient/Caregiver understand: - Pathophysiology - Reportable s/s and when to seek medical care - Treatment plan and post discharge follow up - Medication regime, energy conservation, dietary & lifestyle modification Understand Mgmt Strategy-Yanelis betes Patient/Caregiver understand: - Pathophysiology - Reportable s/s and when to seek medical care - Treatment plan and post discharge follow up - Medication regime, energy conservation, dietary & lifestyle modification Able to achieve maximum mobi lity level Including: - Understands safety - Demonstrates progress in improved mobility - Demonstrates correct use of mobility devices if appropriate - Understands & accepts limitations & plan for progression as appropriate Management Strategy - Nutrit ion
--- OUTSIDE RECORDS SUMMARY | 2023-01-03 20:59 | XMS_ITS | Continuity of Care Document ---
Author Name Unknown Address [address] [place] [address] Phone [facility] Address [address] [place] [address] Phone Care Team Providers Care Tooling Supervisor Name Role Phone Rajinder Tavera Primary Care Provider Rajinder Tavera Family Provider MD Kemal Ruiz Attending Provider Chief Complaint and Reason for Visit Chief Complaint RHEUMATOID ARTHRITIS Allergies, Adverse Reactions, Alerts Allergen Type Severity [...] 8:16am Partial fill available on patient request. Procedures Procedure Date Performed Status XR hand BI 3V March 16, 2021 5:14pm activ e Advance Directives Advance Directive Response Recorded Date/ Time Advance Directives No January 3:30am Health Care Proxy No February 13, 2021 3:30am Advance Directives No February 5:12pm Health Care Proxy No March 16, 2021 5:12pm Insurance Providers Guarantor Tasha Alexander Address [address] [facility] [address] Contact Info. Home Phone: Payer Policy Id Coverage Id Subscriber's Name Subscriber Id Effective Date Expiration Date Blue Cross (Out of State) [facility] Health Safety Net - Partial [id number] 2016 [facility] [id number] [facility] [id number] [facility] Plans Medicaid [facility] No [facility] [id number] Tasha Alexander [id number] Medicare A&B [id number] Tasha Alexander [id number] 1988 Self Pay Self N/A Encounters Encounter Location(s) Arrival/Admit Date Discharge/Depart Date Provider(s) Departed Referred [facility] March 16, 2021 5:10pm March 16, 2021 5:11pm Kemal Ruiz MD Plan of Treatment Future Tests Future scheduled test information is unavailable Pending Tests Pending diagnostic test information is unavailable Future Visits Future appointment information is unavailable Referrals to Other Providers Reason for Referral Referral Start Date Provider Provider Contact Information Provider Address Rajinder Tavera MD Work Phone: [address] [facility] [address] Future Procedures Future procedure information is unavailable Future Medications Future medication information is unavailable Patient Instructions ED Rheumatoid Arthritis
--- OUTSIDE RECORDS SUMMARY | 2023-01-03 20:59 | XMS_ITS | Continuity of Care Document ---
Author Name [facility] Address [address] [place] [address] Organization [facility] Address [address] [place] [address] Support Name Relationship Address Phone Rajinder Tavera Primary Care Provider [address], [place] [id number] Rajinder Tavera Family Provider [address] [place] [address] Martin Scruggs Emergency Provider [address] [facility]/ [place] [address] Allergies, Adverse Reactions, Alerts Allergen Type Severity Reaction Last Updated Verified Status Penicillins Allergy Unknown UNKNOWN August 23, 2019 Y Active Medications No medication information available. Problem List Active Problems Medical Problem Onset Date Status Abdominal pain Active Procedures Procedure Date Status CT abdomen pelvis w con August 23, 2019 complete d EKG ED Electrocardiogram August 23, 2019 active Relevant Diagnostic Tests and/or Laboratory Data Laboratory Results Test Date/Time Result Interp. Ref. Range Result Co mment White Blood Count August 23, 2019 4:10pm 9.6 X10 3/uL 4.5-11.0 Red Blood Count August 23, 2019 4:10pm 4.88 X10 6/uL 3.70-5.00 Hemoglobin August 23, 2019 4:10pm 14.3 g/dl 11.0-16.0 Hematocrit August 23, 2019 4:10pm 43.7 % 33.5-45.0 Mean Corpuscular Volume August 23, 2019 4:10pm 89.5 fl 80.0-100.0 Mean Corpuscular Hemoglobin August 23, 2019 4:10pm 29.3 pg 27.0-34.0 Mean Corpuscular Hemoglobin Concent August 23, 2019 4:10pm 32.7 g/dl 31.0-36.0 Red Cell Distribution Width August 23, 2019 4:10pm 11.9 % 11.5-15.0 Platelet Count August 23, 2019 4:10pm 348 X10 3/uL 150-400 Immature Granulocyte % (Auto) August 23, 2019 4:10pm 0.6 % Neutrophils (%) (Auto) August 23, 2019 4:10pm 55.9 % Lymphocytes (%) (Auto) August 23, 2019 4:10pm 31.8 % Monocytes (%) (Auto) August 23, 2019 4:10pm 9.0 % Eosinophils (%) (Auto) August 23, 2019 4:10pm 1.7 % Basophils (%) (Auto) August 23, 2019 4:10pm 1.0 % Immature Granulocyte # (Auto) August 23, 2019 4:10pm 0.06 X10 3/uL 0.00-0.09 Neutrophils # (Auto) August 23, 2019 4:10pm 5.4 X10 3/uL 1.5-7.8 Lymphocytes # (Auto) August 23, 2019 4:10pm 3.1 X10 3/uL 1.0-4.8 Monocytes # (Auto) August 23, 2019 4:10pm 0.9 X10 3/uL High 0.0-0.8 Eosinophils # (Auto) August 23, 2019 4:10pm 0.2 X10 3/uL 0.0-0.5 Basophils # (Auto) August 23, 2019 4:10pm 0.1 X10 3/uL 0.0-0.2 Nucleated Red Blood Cells % August 23, 2019 4:10pm 0.0 /100 WBC 0.0-0.0 Urine Color August 23, 2019 4:50pm Straw Urine Clarity August 23, 2019 4:50pm Clear Urine pH August 23, 2019 4:50pm 6.0 5.0-8.0 Urine Specific [place] August 23, 2019 4:50pm 1.008 1.003-1.03 0 Urine Blood August 23, 2019 4:50pm Negative mg/dl Urine Protein August 23, 2019 4:50pm Negative mg/dl Urine Glucose (UA) August 23, 2019 4:50pm Negative mg/dl Urine Ketones August 23, 2019 4:50pm Negative mg/dl Urine Nitrate August 23, 2019 4:50pm Negative Urine Bilirubin August 23, 2019 4:50pm Negative mg/dl Urine Urobilinogen August 23, 2019 4:50pm Normal mg/dl Urine Leukocyte Esterase August 23, 2019 4:50pm Negative Sodium Level August 23, 2019 4:10pm 139 mmol/L 137-146 Potassium Level August 23, 2019 4:10pm 3.8 mmol/L 3.5-5.3 Chloride Level August 23, 2019 4:10pm 98 mmol/L 98-107 Carbon Dioxide Level August 23, 2019 4:10pm 28 mmol/L 23-32 Anion Gap August 23, 2019 4:10pm 13 mmol/L 5-15 Blood Urea Nitrogen August 23, 2019 4:10pm 15 mg/dl 5-25 Creatinine August 23, 2019 4:10pm 0.9 mg/dL 0.5-1.1 Estimated Creatinine Clearance August 23, 2019 4:10pm Grade 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 Unable to Calculate CRCL,Ht and/or Wt missing Estimated GFR () August 23, 2019 4:10pm > 60 60- Estimated GFR (Non- August 23, 2019 4:10pm > 60 60- BUN/Creatinine Ratio August 23, 2019 4:10pm 16.7 10.0-20.0 Glucose Level August 23, 2019 4:10pm 217 mg/dL High 70-100 Calcium Level August 23, 2019 4:10pm 9.5 mg/dl 8.6-10.3 Total Bilirubin August 23, 2019 4:10pm < 0.2 mg/dl Aspartate Amino Transf (AST/SGOT) August 23, 2019 4:10pm 19 U/L 15-41 Alanine Aminotransferase (ALT/SGPT) August 23, 2019 4:10pm 21 U/L 14-54 Total Protein August 23, 2019 4:10pm 6.8 g/dL 6.4-8.3 Albumin August 23, 2019 4:10pm 3.9 g/dl Low 4.0-5.0 Albumin/Globulin Ratio August 23, 2019 4:10pm 1.3 1.0-2.6 Alkaline Phosphatase August 23, 2019 4:10pm 88 U/L 35-104 Bedside Urine HCG, Qualitative August 23, 2019 5:27pm Negative This is only a screening test. Low HCG urine level (<20mIU/ml), in case of a early or dilution of urine, may not be detected with this test. Also high concentration of certain drugs may interfere. If suspicious of early or clinically necessary to confirm, a serum Beta-HCG quantitation test is suggested. Advance Directives Advance Directive Response Recorded Date/ Time Advance Directives No August 23, 2019 8:27pm Health Care Proxy No August 23, 2019 8 :27pm Chief Complaint and Reason for Visit Encounter Admit Date Chief Complaint Reason for V isit Departed Emergency August 23, 2019 3:46pm sent by [facility], appendicitis? Hospital Discharge Instructions No known hospital discharge instructions. Encounters Encounter Facility Location Admit/Visit Date Discharge/Departure Date Attending Provider Departed Emergency [facility] August 23, 2019 3:46pm August 23, 2019 7:56pm Functional Status No known functional status. Immunizations No known immunizations. Payers Payer Name Policy Type Covered Libertarian Covered Libertarian Id Relationship Subscriber Subscriber Id Blue Cross (Out of State) [employer] Health Safety Net - Partial Other [id number] [email or web address] [id number] [employer] [id number] [employer] Plans Medicaid Commercial [facility] No [facility] Medicaid Tasha Alexander [id number] Self / Same As Patient Tasha Alexander [id number] Medicare A&B Medicare Primary Tasha Alexander [id number] Self / Same As Patient Tasha Alexander [id number] Self Pay Personal Payment ([place] - No Insurance) Plan of Care Instructions Abdominal Pain Social History Query Response Start Date Stop Date Smoking Status Former smoker Vital Signs Vital Reading Result Reference Range Collection Date/Time Height n/a Weight n/a Temperature 98.1 F 97.6 F-99.6 F August 23, 2019 3 :56pm Pulse 89 BPM 60-90 August 23, 2019 3: 56pm Respiration 18 RPM 12-24 August 23, 2019 3: 56pm Pulse Oximetry 97 % 95-100 August 23, 2019 3:56pm Blood Pressure Systolic 120 90-140 August 23, 2019 3:56pm Blood Pressure Diastolic 96 60-90 Aug 3:56pm Body Mass Index n/a
--- NOTE | 2023-01-03 21:00 | DI.CT_ITS ---
Exam(s) CT NECK W EXAM: CT NECK W INDICATION: eval for sialoadenitis, left facial swelling. COMPARISON: No exams were available for comparison TECHNIQUE: FINDINGS: ORBITS: Bilateral exophthalmos noted. VISUALIZED PARANASAL SINUSES: There is complete opacification of the right maxillary sinus. No bone dehiscence. Left maxillary sinus is clear. Sphenoid and frontal sinuses are clear. NASOPHARYNX: Unremarkable ORODENTAL: Unremarkable. OROPHARYNX: Unremarkable. No masses evident. HYPOPHARYNX: Unremarkable. Valleculae and epiglottis and aryepiglottic folds appear normal. VOCAL CORDS: Unremarkable. No masses evident. Subglottic airway appears unremarkable. THYROID GLAND: Blurred by respiratory motion artifact but exhibits normal size. No obvious dominant nodules. SALIVARY GLANDS: Submandibular glands are symmetrically hypodense-fatty as is the right parotid gland . There is inflammatory change in the left parotid gland as well as surrounding streaking in the sub cutaneous fat over the enlarged left parotid gland. There is no distinct mass nor abscess in left pa rotid gland. No radiopaque. Calculi evident LYMPH NODES: There is no adenopathy evident in the neck and supraclavicular regions. OTHER: VISUALIZED LUNG APICES: No significant findings. IMPRESSION: 1. There is enlargement and inflammatory change evident in the left parotid gland. No radiopaque ca lculus seen in the gland nor its duct. No distinct mass in the parotid. The opposite-right parotid gland appears unremarkable and there are no focal findings in the submandibular glands. 2. Bilateral exophthalmos noted. Thyroid gland is blurred by motion artifact but exhibits normal si ze. 3. There is complete opacification of the right maxillary sinus. Left maxillary sinus unremarkable. RADIATION DOSE DELIVERED: Total DLP DATA REPOSITORY: All CT scans at this facility are submitted to the National Radiology Data Registry (NRDR) Dose Index Registry (DIR) with the [employer] (ACR). RADIATION OPTIMIZATION: All CT scans at this facility use at least one of these dose optimization te chniques: automated exposure control; mA and/or kV adjustment per patient size (includes targeted exa ms where dose is matched to clinical indication); or iterative reconstruction.
[2023-01-03 21:30] LABS: Absolute Basophil Count 0.11 10^3/uL (0.0-0.2); Absolute Eosinophil Count 0.14 10^3/uL (0.0-0.7); Absolute Lymphocyte Count 2.77 10^3/uL (1.2-3.4); Absolute Monocyte Count 0.94 10^3/uL (0.1-0.8); Absolute Neutrophil Count 8.42 10^3/uL (1.2-6.7); Basophils % 0.9; Eosinophils % 1.1; HCT 43.7 % (36.0-46.0); Immature Grans % 0.8; Lymphocytes % 22.2; MCH 30.7 pg (27.0-33.0); MCHC 34.3 % (32.0-36.0); MCV 90 fL (80-95); MPV 9.1 fL (8.0-11.0); Monocytes % 7.5; Neutrophils % 67.5; Platelet Count 370 10^3/uL (130-400); RBC 4.88 10^6/uL (3.93-5.22); RDW 13.6 % (11.7-14.6); RDW-SD 44.5 fL; WBC 12.47 10^3/uL (4.4-10.8)
--- NOTE | 2023-01-03 21:33 | ED.GENADUL_ITS ---
Discharge Plan Disposition Patient Disposition: Home Discharge Details Clinical Impression: Parotid swelling Primary Care Provider: Nasrin,Local ED Provider: Salud Nickerson Home Meds and New Rx's Prescriptions: New amoxicillin-pot clavulanate 875-125 mg tablet 1 tab PO BID Qty: 14 0RF Continued lovastatin 40 MG tablet 40 mg PO DAILY lorazepam 0.5 MG tablet 0.5 mg PO TID PRN ibuprofen 200 MG tablet 200 - 400 mg PO PRN PRN cholestyramine (with sugar) 4 GM powder in packet 4 gm PO BID acetaminophen [Mapap Extra Strength] 500 MG tablet 1 - 2 tab PO PRN PRN glipizide 5 mg tablet 5 mg PO BID mirtazapine 45 mg tablet 45 mg PO QHS methotrexate 2.5 mg/mL solution omeprazole 20 mg capsule,delayed release(DR/EC) 20 mg PO DAILY prednisone 5 mg tablet 5 mg PO DAILY Simponi ARIA 12.5 mg/mL solution 50 mg IV Q8W Rx Instructions: administer over 30 mins triamterene-hydrochlorothiazid 37.5-25 mg capsule 1 cap PO DAILY Discharge Instructions Additional Instructions: Take antibiotic as prescribed Yogurt daily while on antibiotic Should you develop fever, inability to open your jaw, worsening swelling, spreading swelling below your jaw, or with any new or worsening complaints I do recommend urgent reassessment Be aware that sometimes when you eat and saliva is being released, this can cause increased swelling I do recommend holding your immunosuppressive at the discretion of your 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 container 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 should you have persistent swelling, pain, or fever Please follow-up closely with your doctor to be sure this is improving Discharge Data Discharge Date/Time-TO BE ENTERED AT DEPARTURE: 01/03/23 23:38 Medical Decision Making 62-year-old female presenting with left facial swelling and pain after eating, well in appearance, parotid swelling, no trismus, no evidence of stone product blocked uvula midline, maintaining secretions, denies any globus sensation Given age, comorbidities, and presenting complaints, CT was ordered in addition to lab work, mild leukocytosis, CT with parotid swelling, no drainage on exam, afebrile and nontoxic Patient is nontoxic in appearance, given age and comorbidities will start antibiotics, listed as being allergic to penicillin although patient states she received penicillin recently and tolerated it well, specifically no anaphylaxis or hives Will need recheck in 24 to 48 hours and appropriate return precautions reviewed Discharged home in stable condition with stable vitals HPI General Date/Time Provider Initiated Documentation: 01/03/23 21:02 . HPI Narrative: 62-year-old female presents with report of left facial swelling which started while she was eating. Has improved slightly since onset. immunosuppresed as she has a history of rheumatoid arthritis and this is slightly atypical typically she has isolated jaw pain without significant swelling. Denies difficulty swallowing or shortness of breath. Denies fever or chills. Health care is predominantly in [place], moving to the area. Denies any new medications. On several immunosuppressive's including prednisone. Related Data Home Medications Medication Instructions Recorded Confirmed lorazepam 0.5 mg tablet 0.5 mg PO TID PRN 09/01/17 01/03/23 lovastatin 40 mg tablet 40 mg PO DAILY 09/01/17 01/03/23 cholestyramine (with sugar) 4 gram 4 gm PO BID 09/20/17 01/03/23 powder for susp in a packet ibuprofen 200 mg tablet 200 - 400 mg PO PRN PRN 09/20/17 01/03/23 acetaminophen 500 mg tablet (Mapap 1 - 2 tab PO PRN PRN 09/24/17 01/03/23 Extra Strength) amoxicillin 875 mg-potassium 1 tab PO BID #14 tabs 01/03/23 clavulanate 125 mg tablet glipizide 5 mg tablet 5 mg PO BID 01/03/23 01/03/23 golimumab 12.5 mg/mL intravenous 50 mg IV Q8W 01/03/23 01/03/23 solution (Simponi ARIA) methotrexate 2.5 mg/mL oral 01/03/23 solution mirtazapine 45 mg tablet 45 mg PO QHS 01/03/23 01/03/23 omeprazole 20 mg capsule,delayed 20 mg PO DAILY 01/03/23 01/03/23 release prednisone 5 mg tablet 5 mg PO DAILY 01/03/23 01/03/23 triamterene 37.5 1 cap PO DAILY 01/03/23 01/03/23 mg-hydrochlorothiazide 25 mg capsule Previous Rx's Medication Instructions Recorded amoxicillin 875 mg-potassium 1 tab PO BID #14 tabs 01/03/23 clavulanate 125 mg tablet Allergies Allergy/AdvReac Type Severity Reaction Status Date / Time amlodipine [From [facility]] Allergy Severe Hives Unverified 01/03/23 20:51 latex Allergy Intermediate Hives Unverified 01/03/23 20:51 Penicillins Allergy Intermediate response Unverified 01/03/23 20:51 as child valsartan Allergy Intermediate Skin Rash Unverified 01/03/23 20:51 lisinopril AdvReac Intermediate cough Unverified 01/03/23 20:51 General Stated Complaint: DentalOral SHARON: 4 PFSH All Active Problems (Updated 01/03/23 @ 23:26 by TROY Murcia) Parotid swelling (Acute) Medical History (Updated 01/03/23 @ 23:26 by TROY Murcia) Obesity Hypertension COPD (chronic obstructive pulmonary disease) Anxiety and depression Right inguinal hernia Hyperlipidemia DEWAYNE (obstructive sleep apnea) Surgical History (Updated 01/01/18 @ 14:37 by [facility] [place]) Ligation of fallopian tube Tonsillectomy and adenoidectomy Repair deviated septum Repair of inguinal hernia (09/24/17) bilateral Dilation and curettage Cholecystectomy Arthroplasty of knee Social History Smoking/Tobacco Use Status: Former Tobacco Use Smoking risk assessment performed?: Yes Alcohol Intake: current Alcohol Intake frequency: holidays/special occasions only Alcohol type: hard liquor Drug use: Never Substance use type: does not use Do you feel safe at home: Yes Do you feel safe in your relationship?: Yes Course Vital Signs Vital signs: Vital Signs Temperature 36.4 C L 01/03/23 20:43 Pulse 108 H 01/03/23 20:43 Respiratory Rate 20 01/03/23 20:43 Blood Pressure 126/97 H 01/03/23 20:43 Pulse Oximetry 97 01/03/23 20:43 Temperature 36.4 C L 01/03/23 20:43 Temperature Source Temporal Artery Scan 01/03/23 20:43 Pulse 108 H 01/03/23 20:43 Respiratory Rate 20 01/03/23 20:43 Respiratory Effort Normal, Non-Labored 01/03/23 20:49 Blood Pressure 126/97 H 01/03/23 20:43 Blood Pressure Position Sitting 01/03/23 20:43 Pulse Oximetry 97 01/03/23 20:43 Oxygen Delivery Method Room Air 01/03/23 20:43 Oxygen Flow Rate 0 01/03/23 20:43 Pain Level 7 01/03/23 20:43 Lab/Test Results Lab/Test Results: Laboratory Tests Range/Units 01/03/23 21:22 WBC (4.4-10.8) 10^3/uL 12.47 H RBC (3.93-5.22) 10^6/uL 4.88 Hgb (11.2-15.7) g/dL 15.0 Hct (36.0-46.0) % 43.7 MCV (80-95) fL 90 MCH (27.0-33.0) pg 30.7 MCHC (32.0-36.0) % 34.3 RDW (11.7-14.6) % 13.6 Plt Count (130-400) 10^3/uL 370 MPV (8.0-11.0) fL 9.1 Immature Gran % 0.8 Neutrophils % 67.5 Lymphocytes % 22.2 Monocytes % 7.5 Eosinophils % 1.1 Basophils % 0.9 Nucleated RBC % (0.0-0.3) % 0.0 Absolute Neutrophils (1.2-6.7) 10^3/uL 8.42 H Absolute Lymphocytes (1.2-3.4) 10^3/uL 2.77 Absolute Monocytes (0.1-0.8) 10^3/uL 0.94 H Absolute Eosinophils (0.0-0.7) 10^3/uL 0.14 Absolute Basophils (0.0-0.2) 10^3/uL 0.11 PAWSS Have you Been Recently Intoxicated or Drunk Within the Last 30 days?: No Have you Ever Experienced Previous Episodes of Alcohol Withdrawal?: No Have you ever Experienced Withdrawal Seizures?: No Have you ever Experienced Delirium Tremens(DT)s?: No Have you ever undergone Alcohol Rehabilitation Treatment (i.e, inpt ot outpatient treatment programs)?: No Have you ever Experienced Blackouts?: No Have you ever Combined Alcohol with other Downers within the last 90 days?: No Have you ever Combined Alcohol with any other Substance of Abuse during the last 90 days?: No Positive Blood Alcohol level on Presentation? [PCS.BAL]: No Evidence of Increased Autonomic Activity (i.e. HR>120, tremor, sweating, agitation, nausea)?: No Result: 0
[2023-01-03 21:41] LABS: Anion Gap 13.4 mmol/L (3-11); BUN 22 mg/dL (7-18); CO2 23.6 mmol/L (21.0-32.0); CREATININE 1.1 mg/dL (0.55-1.02); Calcium 9.8 mg/dL (8.5-10.1); Chloride 99 mmol/L (98-107); Estimated GFR 57.52 (mL/min/1.73m2); Glucose 182 mg/dL (74-106); Potassium 3.3 mmol/L (3.5-5.1); Sodium 136 mmol/L (136-145)
[2023-01-03] MEDS: Omnipaque 350 MG/ML 100 ML BTL IJ (21:57)
[2023-01-03] MEDS: Normal Saline - Diluent 50 ML VIAL IJ (21:57)
[2023-01-03] MEDS: LORazepam 2 MG/ML VIAL 1 MG IVP (21:58)
[2023-01-03] MEDS: Normal Saline Flush 10 ML SYR IVP (21:58)
--- NOTE | 2023-01-03 23:01 | DI.VRAD_ITS ---
PROCEDURE INFORMATION: Exam: CT Neck With Contrast Exam date and time: 01/03/2023 10:09 PM Age: 62 years old Clinical indication: Other: Eval for sialoadenitis, left facial swelling TECHNIQUE: Imaging protocol: Computed tomography of the neck with contrast. Contrast material: OMNIPAQUE 350; Contrast volume: 100 ml; Contrast route: INTRAVENOUS (IV); COMPARISON: No relevant prior studies available. FINDINGS: Orbital cavities: Bilateral exophthalmos. Paranasal sinuses: Complete opacification right maxillary sinus with dense internal material favors this is chronic. Associated hyperostosis. Pharynx: Unremarkable. No significant tonsillar enlargement. Larynx: Normal epiglottis. Prevertebral and retropharyngeal spaces: Unremarkable. Salivary glands: Fatty replacement of submandibular and parotid glands. Motion artifact. Left parotid gland appears mildly inflamed without ductal dilation or mass lesion. Thyroid: No enlarged or calcified nodules. Lymph nodes: No lymphadenopathy. Trachea: Visualized trachea is unremarkable. Lungs: Motion artifact in the lungs. Apical pulmonary emphysema. Bones/joints: Reversal of the normal cervical lordosis. No acute fracture or subluxation. Soft tissues: Prominent subcutaneous fat. No significant soft tissue collections or lesions. Trace edema suggested subcutaneous fat on the left overlying the left parotid gland. IMPRESSION: 1. Mild left parotid sialitis. 2. Additional findings as described. Dictated and Authenticated by: Tosin James MD. Ordering:RAFIA Brannon MD
[2023-01-03 23:23] VITALS: BP 128/87; PULSE 86; RESP 18; O2SAT 95
[2023-01-03] MEDS: Amoxicillin 875/Clav. 125 TAB PO (23:27)
--- NOTE | 2023-01-03 23:31 | NUR.NOTE ---
Need to call PCP's to establish a Primary Care Physican. Referral given to Molder Offbearer to help with this.
== END 2023-01-03 23:38 | disposition home or self-care (01) ==
PROVIDERS: Emergency Provider Physician Assistant
DX: M06.9 Rheumatoid arthritis, unspecified (principal); R59.0 Localized enlarged lymph nodes; Z91.040 Latex allergy status; Z88.0 Allergy status to penicillin; Z88.8 Allergy status to other drugs, medicaments and biological substances; I10 Essential (primary) hypertension; J44.9 Chronic obstructive pulmonary disease, unspecified; E78.5 Hyperlipidemia, unspecified; Z79.899 Other long term (current) drug therapy
CPT/HCPCS: 70491; 80048; 96374; 99285; 85025; 99284; J2060; J3490

== ENCOUNTER 2023-01-24 19:53 | Emergency (ER) | payer MEDICARE, SELFPAY ==
[2023-01-24] VITALS (20 sets, daily range): BP systolic 110–159; BP diastolic 60–103; PULSE 77–91; RESP 9–30; TEMP 36.3; O2SAT 93–97
--- NOTE | 2023-01-24 20:15 | RT.EKG_ITS ---
APPROVED REPORT Exam: Resting ECG Reason for Exam: sob, chest pain Patient Location: E HR:79 bpm ECG Measurements Heart Rate 79 AXIS TN 153 P 52 QRSd 67 QRS 18 QT 379 T 64 QTc 435 Conclusion Sinus rhythm.. V-rate 60- [address] segment or T wave abnormalities to suggest occlusive [place]
--- NOTE | 2023-01-24 20:15 | RT.EKG_ITS ---
APPROVED REPORT Exam: Resting ECG Reason for Exam: short of breath, chest pain Patient Location: E HR:87 bpm ECG Measurements Heart Rate 87 AXIS DE 140 P 54 QRSd 72 QRS 24 QT 371 T 59 QTc 447 Conclusion Sinus rhythm. V-rate 60- [address] segment or T wave abnormalities to suggest occlusive LA interpretation limited 2/t baseline artifact
--- NOTE | 2023-01-24 20:30 | DI.RAD_ITS ---
Exam(s) XR CHEST 2V PA LATERAL EXAM: XR CHEST 2V PA LATERAL CLINICAL HISTORY: chest pain TECHNIQUE: 2D digital imaging was performed. COMPARISON: No exams were available for comparison FINDINGS: HEART: Normal size. Aorta: Tortuous. PULMONARY VASCULATURE: Normal. LUNGS: Clear. PLEURAL SPACE: No pleural effusion or pneumothorax. BONE:Unremarkable for age. IMPRESSION: No acute abnormality. DATA REPOSITORY: RADIATION DOSE DELIVERED:
[2023-01-24 20:45] LABS: Abs Immature Grans 0.08 10^3/uL (0.0-0.06); Absolute Eosinophil Count 0.22 10^3/uL (0.0-0.7); Absolute Lymphocyte Count 3.74 10^3/uL (1.2-3.4); Absolute Monocyte Count 0.78 10^3/uL (0.1-0.8); Eosinophils % 1.9; HCT 39.2 % (36.0-46.0); HGB 13.3 g/dL (11.2-15.7); Immature Grans % 0.7; Lymphocytes % 32.4; MCH 30.9 pg (27.0-33.0); MCHC 33.9 % (32.0-36.0); MCV 91 fL (80-95); MPV 9.5 fL (8.0-11.0); Monocytes % 6.8; Neutrophils % 57.2; Platelet Count 336 10^3/uL (130-400); RBC 4.31 10^6/uL (3.93-5.22); RDW 13.1 % (11.7-14.6); RDW-SD 43.6 fL; WBC 11.54 10^3/uL (4.4-10.8)
[2023-01-24 20:46] LABS: Absolute Basophil Count 0.12 10^3/uL (0.0-0.2)
--- NOTE | 2023-01-24 20:55 | ED.GENADUL_ITS ---
Discharge Plan Disposition Patient Disposition: Home Condition: Good Discharge Details Clinical Impression: Chest pain Primary Care Provider: Unknown,Unknown ED Provider: Maegan Easley Home Meds and New Rx's Prescriptions: No Action lovastatin 40 MG tablet 40 mg PO DAILY lorazepam 0.5 MG tablet 0.5 mg PO TID PRN ibuprofen 200 MG tablet 200 - 400 mg PO PRN PRN cholestyramine (with sugar) 4 GM powder in packet 4 gm PO BID acetaminophen [Mapap Extra Strength] 500 MG tablet 1 - 2 tab PO PRN PRN glipizide 5 mg tablet 5 mg PO BID mirtazapine 45 mg tablet 45 mg PO QHS methotrexate 2.5 mg/mL solution omeprazole 20 mg capsule,delayed release(DR/EC) 20 mg PO DAILY prednisone 5 mg tablet 5 mg PO DAILY Simponi ARIA 12.5 mg/mL solution 50 mg IV Q8W Rx Instructions: administer over 30 mins triamterene-hydrochlorothiazid 37.5-25 mg capsule 1 cap PO DAILY amoxicillin-pot clavulanate 875-125 mg tablet 1 tab PO BID Qty: 14 0RF Discharge Instructions Instructions: Chest Pain (ED) Additional Instructions: Call your primary care doctor tomorrow to schedule an appointment within one week to follow up on your visit here. Take tylenol and ibuprofen over the counter as needed for pain; follow the directions on the bottle. Return to the emergency department for new or worsening symptoms including new/different/worse pain, difficulty breathing, feeling like you are going to pass out, or if you have any other concerns. Medical Decision Making 63yo F with hx of HTN, HLD, COPD, anxiety, presenting for chest pain. Onset this morning, constant since then, bilateral, worse with movement. Associated shortness of breath and anxiety. Thinks she may be having a panic attack. Hypertensive on arrival, vital signs and physical exam otherwise reassuring. Clear lungs, not suspicious for COPD exacerbation. Given tylenol and toradol for pain. EKG NSR, appropriate intervals, no indication of occlusive CA. CXR independently reviewed, no pneumonia or pneumothorax on my view, agree with radiology read below. Labs reviewed as below, CBC & CMP reassuring with no actionable abnormalities. Troponin negative; in the setting of 12+ hours of pain would not further pursue ACS. D-dimer negative, would not further workup for pulmonary embolism/chest CT/etc. On reassessment she reports pain has improved, vital signs remain reassuring; now tearful, feeling more panicky. Chin es ativan at home sometimes for this; offered here which she initially declined but after discussion with her partner at bedside chose to accept. Unclear etiology of pain, ? musculoskeletal. Discharged home; discharge instructions including return precautions were reviewed with patient who verbalized understanding. All questions were answered and they are in full agreement with the plan. Imaging Data Radiologic Study: Imaging: X-Ray Radiologist's impression: IMPRESSION: No acute findings. Lab Data Lab results reviewed: Yes I reviewed the patient's lab results. Labs: Laboratory Tests Range/Units 01/24/23 20:30 WBC (4.4-10.8) 10^3/uL 11.54 H RBC (3.93-5.22) 10^6/uL 4.31 Hgb (11.2-15.7) g/dL 13.3 Hct (36.0-46.0) % 39.2 MCV (80-95) fL 91 MCH (27.0-33.0) pg 30.9 MCHC (32.0-36.0) % 33.9 RDW (11.7-14.6) % 13.1 Plt Count (130-400) 10^3/uL 336 MPV (8.0-11.0) fL 9.5 Immature Gran % 0.7 Neutrophils % 57.2 Lymphocytes % 32.4 Monocytes % 6.8 Eosinophils % 1.9 Basophils % 1.0 Nucleated RBC % (0.0-0.3) % 0.0 Absolute Neutrophils (1.2-6.7) 10^3/uL 6.60 Absolute Lymphocytes (1.2-3.4) 10^3/uL 3.74 H Absolute Monocytes (0.1-0.8) 10^3/uL 0.78 Absolute Eosinophils (0.0-0.7) 10^3/uL 0.22 Absolute Basophils (0.0-0.2) 10^3/uL 0.12 D-Dimer (<500) ng/mlFEU 427 Sodium (136-145) mmol/L 140 Potassium (3.5-5.1) mmol/L 3.9 Chloride (98-107) mmol/L 103 Carbon Dioxide (21.0-32.0) mmol/L 26.5 Anion Gap (3-11) mmol/L 10.5 BUN (7-18) mg/dL 17 Creatinine (0.55-1.02) mg/dL 1.0 Est GFR (CKD-EPI 2020) (mL/min/1.73m2) 64.09 Glucose (74-106) mg/dL 153 H Calcium (8.5-10.1) mg/dL 9.5 Total Bilirubin (0.2-1.0) mg/dL 0.3 AST (15-37) U/L 13 L ALT (14-59) U/L 23 Alkaline Phosphatase (46-116) U/L 84 Troponin I (<or=60) ng/L < 50 Total Protein (6.4-8.2) g/dL 7.0 Albumin (3.4-5.0) g/dL 3.5 HPI General Mode of arrival: ambulatory . Date/Time Provider Initiated Documentation: 01/24/23 20:29 . Limitations to Documentation: no limitations . Information obtained by: patient . HPI Narrative: 63yo F with hx of HTN, HLD, COPD, anxiety, presenting for chest pain. Pain started this morning and has been persistent, on both sides of her chest under her rib cage, worse with arm movement, feels 'pinching'. Associated mild shortness of breath. Worried about possible pneumonia. Also feels anxious, thinks she may be having a panic attack. No fevers, chills, rash, nasuea, vomiting, numbness, tingling, weakness, worsening LE edema, recent illness, or other concerns. Related Data Home Medications Medication Instructions Recorded Confirmed lorazepam 0.5 mg tablet 0.5 mg PO TID PRN 09/01/17 01/03/23 lovastatin 40 mg tablet 40 mg PO DAILY 09/01/17 01/03/23 cholestyramine (with sugar) 4 gram 4 gm PO BID 09/20/17 01/03/23 powder for susp in a packet ibuprofen 200 mg tablet 200 - 400 mg PO PRN PRN 09/20/17 01/03/23 acetaminophen 500 mg tablet (Mapap 1 - 2 tab PO PRN PRN 09/24/17 01/03/23 Extra Strength) amoxicillin 875 mg-potassium 1 tab PO BID #14 tabs 01/03/23 clavulanate 125 mg tablet glipizide 5 mg tablet 5 mg PO BID 01/03/23 01/03/23 golimumab 12.5 mg/mL intravenous 50 mg IV Q8W 01/03/23 01/03/23 solution (Simponi ARIA) methotrexate 2.5 mg/mL oral 01/03/23 solution mirtazapine 45 mg tablet 45 mg PO QHS 01/03/23 01/03/23 omeprazole 20 mg capsule,delayed 20 mg PO DAILY 01/03/23 01/03/23 release prednisone 5 mg tablet 5 mg PO DAILY 01/03/23 01/03/23 triamterene 37.5 1 cap PO DAILY 01/03/23 01/03/23 mg-hydrochlorothiazide 25 mg capsule Previous Rx's Medication Instructions Recorded amoxicillin 875 mg-potassium 1 tab PO BID #14 tabs 01/03/23 clavulanate 125 mg tablet Allergies Allergy/AdvReac Type Severity Reaction Status Date / Time amlodipine [From [facility]] Allergy Severe Hives Unverified 01/03/23 20:51 latex Allergy Intermediate Hives Unverified 01/03/23 20:51 Penicillins Allergy Intermediate response Unverified 01/03/23 20:51 as child valsartan Allergy Intermediate Skin Rash Unverified 01/03/23 20:51 lisinopril AdvReac Intermediate cough Unverified 01/03/23 20:51 General Stated Complaint: [facility]Medical SHARON: 3 Review of Systems Narrative: see HPI PFSH All Active Problems (Updated 01/24/23 @ 21:47 by Maegan Easley MD) Chest pain (Acute) Parotid swelling (Acute) Medical History (Updated 01/24/23 @ 21:47 by Maegan Easley MD) Obesity Hypertension COPD (chronic obstructive pulmonary disease) Anxiety and depression Right inguinal hernia Hyperlipidemia DEWAYNE (obstructive sleep apnea) Surgical History (Updated 01/01/18 @ 14:37 by [employer] [facility]) Ligation of fallopian tube Tonsillectomy and adenoidectomy Repair deviated septum Repair of inguinal hernia (09/24/17) bilateral Dilation and curettage Cholecystectomy Arthroplasty of knee Social History Smoking/Tobacco Use Status: Former Tobacco Use Smoking risk assessment performed?: Yes Alcohol Intake: current Alcohol Intake frequency: holidays/special occasions only Alcohol type: hard liquor Drug use: Never Substance use type: does not use Do you feel safe at home: Yes Do you feel safe in your relationship?: Yes Exam Narrative Exam Narrative: General: Alert, well appearing, well nourished, in no acute distress. Head: Normocephalic, atraumatic Neck: Trachea midline, Neck supple. ENT: MMM. No oropharygeal lesions or exudate. Cardiac: RRR, no murmurs appreciated Resp: No respiratory distress. CTAB. Abd: Soft, non-distended, nontender : No suprapubic tenderness. Extremities: No deformities. No peripheral edema. Neurologic: GCS 15. Moves all extremities freely against gravity Course Vital Signs Vital signs: Vital Signs Temperature 36.3 C L 01/24/23 20:11 Pulse 89 01/24/23 20:11 Respiratory Rate 16 01/24/23 20:11 Blood Pressure 151/103 H 01/24/23 20:11 Pulse Oximetry 97 01/24/23 20:11 Temperature 36.3 C L 01/24/23 20:11 Temperature Source Temporal Artery Scan 01/24/23 20:11 Pulse 85 01/24/23 20:31 Pulse 91 H 01/24/23 20:40 Respiratory Rate 14 01/24/23 20:40 Respiratory Effort Normal 01/24/23 20:22 Respiratory Depth Normal 01/24/23 20:22 Respiratory Pattern Normal 01/24/23 20:22 Blood Pressure 145/84 H 01/24/23 20:31 Blood Pressure Mean 106 01/24/23 20:31 Blood Pressure Position Sitting 01/24/23 20:11 Pulse Oximetry 93 01/24/23 20:40 Oxygen Delivery Method Room Air 01/24/23 20:11 Oxygen Flow Rate 0 01/24/23 20:11 Pain Level 10 01/24/23 20:11 Lab/Test Results Lab/Test Results: Laboratory Tests Range/Units 01/24/23 20:30 WBC (4.4-10.8) 10^3/uL 11.54 H RBC (3.93-5.22) 10^6/uL 4.31 Hgb (11.2-15.7) g/dL 13.3 Hct (36.0-46.0) % 39.2 MCV (80-95) fL 91 MCH (27.0-33.0) pg 30.9 MCHC (32.0-36.0) % 33.9 RDW (11.7-14.6) % 13.1 Plt Count (130-400) 10^3/uL 336 MPV (8.0-11.0) fL 9.5 Immature Gran % 0.7 Neutrophils % 57.2 Lymphocytes % 32.4 Monocytes % 6.8 Eosinophils % 1.9 Basophils % 1.0 Nucleated RBC % (0.0-0.3) % 0.0 Absolute Neutrophils (1.2-6.7) 10^3/uL 6.60 Absolute Lymphocytes (1.2-3.4) 10^3/uL 3.74 H Absolute Monocytes (0.1-0.8) 10^3/uL 0.78 Absolute Eosinophils (0.0-0.7) 10^3/uL 0.22 Absolute Basophils (0.0-0.2) 10^3/uL 0.12
[2023-01-24 20:57] LABS: ALT 23 U/L (14-59); AST 13 U/L (15-37); Albumin 3.5 g/dL (3.4-5.0); Alkaline Phosphatase 84 U/L (46-116); Anion Gap 10.5 mmol/L (3-11); BUN 17 mg/dL (7-18); Bilirubin, Total 0.3 mg/dL (0.2-1.0); CO2 26.5 mmol/L (21.0-32.0); Calcium 9.5 mg/dL (8.5-10.1); Chloride 103 mmol/L (98-107); Estimated GFR 64.09 (mL/min/1.73m2); Glucose 153 mg/dL (74-106); Potassium 3.9 mmol/L (3.5-5.1); Sodium 140 mmol/L (136-145); Troponin I < 50 ng/L (<or=60)
[2023-01-24] MEDS: ACETAMINOPHEN 1,000 MG/100 ML BTL 400 MG IVPB (21:08)
[2023-01-24] MEDS: Ketorolac 15 MG/ML VIAL IVP (21:08)
[2023-01-24 21:32] LABS: D-Dimer 427 ng/mlFEU (<500)
--- NOTE | 2023-01-24 21:55 | DI.VRAD_ITS ---
PROCEDURE INFORMATION: Exam: XR Chest Exam date and time: 01/24/2023 9:11 PM Age: 63 years old Clinical indication: Other: Chest pain TECHNIQUE: Imaging protocol: Radiologic exam of the chest. Views: 2 views. COMPARISON: CT NECK W 01/03/2023 10:09 PM FINDINGS: Lungs: Unremarkable. No consolidation. Pleural spaces: Unremarkable. No pleural effusion. No pneumothorax. Heart/Mediastinum: Unremarkable. No cardiomegaly. Bones/joints: Unremarkable. IMPRESSION: No acute findings. Dictated and Authenticated by: Jorge Alarcon MD. Ordering:JUNG Issa MD
[2023-01-24] MEDS: LORazepam 1 MG TAB PO (22:09)
== END 2023-01-24 22:27 | disposition home or self-care (01) ==
PROVIDERS: Emergency Provider Student in an Organized Health Care Education/Training Program
DX: R07.9 Chest pain, unspecified (principal)
CPT/HCPCS: 80053; 93005; 96374; 96375; 99284; 71046; 84484; 85025; 85379; 93010; 99283; J0131; J1885

== ENCOUNTER 2023-02-07 04:19 | Emergency (ER) | payer MEDICARE, SELFPAY ==
[2023-02-07] VITALS (38 sets, daily range): BP systolic 123–213; BP diastolic 64–146; PULSE 73–101; RESP 14–30; TEMP 37.1; O2SAT 87–98
--- NOTE | 2023-02-07 04:15 | RT.EKG_ITS ---
APPROVED REPORT Exam: Resting ECG Reason for Exam: Difficulty Breathing Patient Location: E HR:95 bpm ECG Measurements Heart Rate [address] 141 P 29 QRSd 79 QRS 3 QT 353 T 32 QTc 443 Conclusion Sinus rhythm...normal P axis, V-rate 60- 99 Low voltage, extremity leads...all extremity leads <0.5mV Narrow complex normal sinus rhythm at a rate of 95. Normal axis. Intervals within normal limits. L ow voltage in limb leads. Appears similar to prior. Prior dated earlier this month. No acute injur y pattern.
--- NOTE | 2023-02-07 04:30 | DI.CT_ITS ---
Exam(s) CT THORAX ABD/PEL CTA EXAM: CT THORAX ABD/PEL CTA CLINICAL HISTORY: Shortness of breath chest pain radiating to back. TECHNIQUE: Imaging Protocol: Axial CT angiography was performed with multi-slice acquisition and m ulti-planar and/or 3D reconstructions. CONTRAST MATERIAL: Intravenous: Omnipaque 350 contrast volume:125 mL Oral: No COMPARISON: CT ABD PELVIS WITH CONTRAST from 09/02/2017 CR,XR XR CHEST 2V PA LATERAL from 01/24/2023 FINDINGS: CHEST: Tracheobronchial tree: Patent where visualized. Pulmonary parenchyma: Centrilobular emphysematous changes are present. There is dependent atelectasi s. No focal consolidating infiltrates are present. Pulmonary Arteries: Due to the bolus timing, pulmonary arteries are not adequately opacified for eval uation of pulmonary emboli. Mediastinum and Aleshia: No dominant adenopathy or fluid collection. The esophagus is unremarkable. Visualized thyroid: Unremarkable. Pleura: No effusion or pneumothorax. Heart: The heart is not dilated. Mild coronary artery calcification. No pericardial effusion. Aorta: Thoracic aorta non-dilated. No evidence of dissection. Atherosclerosis is present. Soft Tissues: Unremarkable. Bones: Within normal limits for the patient's age. ABDOMEN AND PELVIS: Abdomen: Celiac axis/mesenteric arteries: No evidence of occlusion or significant stenosis. Renal Arteries: No evidence of occlusion or significant stenosis. Mild atherosclerosis at the origin of the renal arteries bilaterally. Aorta: No evidence of occlusion or significant stenosis. No aneurysm or dissection. Atherosclerosi s is present. Pelvis: Iliac Arteries: No evidence of occlusion or significant stenosis. Common Femoral Arteries: No evidence of occlusion or significant stenosis. ABDOMEN: Liver: Normal density. No measurable mass. Gallbladder and Biliary Tract: Status post cholecystectomy. No significant biliary ductal dilatation . Pancreas: Normal density, no abnormal calcifications or inflammatory process. Spleen: There is a stable splenic cyst. Adrenals: No masses seen. Kidneys: Normal size, contour and axis. No radiodense stones or obstructive uropathy. There is a simp le left renal cyst which is stable. No follow-up is recommended. Bowel: There is diverticulosis of the colon but no evidence of acute diverticulitis. No evidence of bowel obstruction or bowel wall thickening. No evidence of appendicitis. Peritoneal Cavity: No ascites, collection or mesenteric inflammatory response. No free air. Lymph Nodes: Within normal limits. Bones: Within normal limits for the patient's age. There is a superior compression deformity of T7. This was not apparent on the chest x-ray from 01/24/2023. There is mild loss of height of the verteb ral body (less than 25 percent.). Soft Tissues: Unremarkable. PELVIS: Bladder: Symmetric distention, no gross wall thickening. Reproductive Organs: Unremarkable as visualized. Lymph Nodes: Within normal limits. Bones: Within normal limits for the patient's age. IMPRESSION: 1. There is a superior compression deformity of T7 not present on the chest x-ray from 01/24/2023. An MRI should be considered for further evaluation as to its acuity. 2. No evidence of thoracic aortic aneurysm or dissection. 3. Findings were discussed with Dr. Fernandes at 7:40 a.m. on 02/07/2023. Unexpected findings RADIATION DOSE DELIVERED: Total DLP DATA REPOSITORY: All CT scans at this facility are submitted to the National Radiology Data Registry (NRDR) Dose Index Registry (DIR) with the [employer] (A[employer]). RADIATION OPTIMIZATION: All CT scans at this facility use at least one of these dose optimization te chniques: automated exposure control; mA and/or kV adjustment per patient size (includes targeted exa ms where dose is matched to clinical indication); or iterative reconstruction.
--- NOTE | 2023-02-07 04:32 | ED.GENADUL_ITS ---
Discharge Plan Discharge Details Chief Complaint: Chest Pain Clinical Impression: Chest pain, unspecified Primary Care Provider: Unknown,Unknown ED Provider: Leonardo Fernandes Stella Meds and New Rx's Prescriptions: No Action lovastatin 40 MG tablet 40 mg PO DAILY lorazepam 0.5 MG tablet 0.5 mg PO TID PRN ibuprofen 200 MG tablet 200 - 400 mg PO PRN PRN cholestyramine (with sugar) 4 GM powder in packet 4 gm PO BID glipizide 5 mg tablet 5 mg PO BID mirtazapine 45 mg tablet 45 mg PO QHS methotrexate 2.5 mg/mL solution omeprazole 20 mg capsule,delayed release(DR/EC) 20 mg PO DAILY prednisone 5 mg tablet 5 mg PO DAILY Simponi ARIA 12.5 mg/mL solution 50 mg IV Q8W Rx Instructions: administer over 30 mins triamterene-hydrochlorothiazid 37.5-25 mg capsule 1 cap PO DAILY HPI General Date/Time Provider Initiated Documentation: 02/07/23 04:29 . HPI Narrative: MDM This is an uncomfortable appearing hypertensive but normothermic and not tachycardic 63-year-old female with right-sided chest pain radiating into her back concerning for aortic dissection for which patient will undergo CT angiogram. Patient does feel short of breath and as result will evaluate for PE concurrently. No rash to back to suggest zoster. No pain out of proportion to suggest necrotizing soft tissue infection. Equal breath sounds and no trauma so doubt pneumothorax. Given positional component pericarditis is certainly in differential however ECG is not suggestive and patient has had no preceding URI symptoms. Not hypotensive nor tachycardic nor dialysis patient so my suspicion is exceedingly low for tamponade. No rash to chest to suggest zoster. No right upper quadrant tenderness to suggest acute cholecystitis. Based on elevated BMI we will obtain lipase to assess for pancreatitis. Given symptoms for multiple weeks doubt ischemic bowel. No suspicion for sepsis based on no fevers and reassuring vitals. Exam not consistent with SBO given no vomiting and no abdominal tenderness. No right lower quadrant tenderness to suggest appendicitis. No history of ureterolithiasis to suggest obstructive uropathy. Soft nontender abdomen so low suspicion for intra-abdominal process. No dysuria no frequency to suggest UTI. Will reassess following fentanyl for analgesia. 5:05 AM Patient felt improved following fentanyl. Approximate [address] scan patient was feeling anxious. I ordered her 1 mg of IV midazolam. 5:10 AM Reassuring normal lipase. Venous blood gas lacks acidemia and hypercarbia. Negative troponin. Basic metabolic panel showing no TIFFANY. Very mild hyperglycemia but no anion gap and normal bicarbonate??not consistent with DKA. CBC shows no anemia no thrombocytopenia and no leukocytosis. 6:35 AM Patient resting comfortably no acute distress. Blood pressures normalized. CT on preliminary virtual radiology read reassuring: Exam: CTA Chest With Contrast CTA Abdomen and Pelvis With Contrast Exam date and time: 02/07/2023 5:19 AM Age: 63 years old Clinical indication: Shortness of breath; Chest wall pain; Other: Chest pain radiating to back TECHNIQUE: Imaging protocol: Computed tomographic angiography of the chest with contrast. Exam focused on the arteries. Computed tomographic angiography of the abdomen and pelvis with contrast. Exam focused on the arteries. 3D rendering (Not supervised by radiologist): MIP and/or 3D reconstructed images were created by the technologist. Contrast material: OMNI 350; Contrast volume: 100 ml; Contrast route: INTRAVENOUS (IV); COMPARISON: CR XR CHEST 2V PA LATERAL 01/24/2023 9:11 PM FINDINGS: VASCULATURE: Pulmonary arteries: Limited evaluation due to suboptimal opacification.. Aorta: Normal aorta without aneurysm or dissection. The major vessels are patent. CHEST: Lungs: Emphysema. Bibasilar atelectasis. Pleural spaces: No pleural effusion or pneumothorax. Heart: Unremarkable. No cardiomegaly. No pericardial effusion. ABDOMEN AND PELVIS: Liver: Hepatic fatty infiltration. Gallbladder and bile ducts: Cholecystectomy. Pancreas: Unremarkable. No mass. No ductal dilation. Spleen: Unremarkable. No splenomegaly. Adrenal glands: Unremarkable. No mass. Kidneys and ureters: 3 cm left renal cyst. No hydronephrosis. Stomach and bowel: No evidence of bowel obstruction. Colonic diverticulosis without diverticulitis. Appendix: Normal appendix. Intraperitoneal space: No free fluid or free air. Urinary bladder: Unremarkable. No mass. Reproductive: Unremarkable as visualized. Lymph nodes: Unremarkable. No enlarged lymph nodes. Bones/joints: Chronic compression deformity of T7. No acute fracture. Soft tissues: Unremarkable. IMPRESSION: No acute findings. Dictated and Authenticated by: Reggie Alvarez MD 02/07/2023 6:24 AM Eastern Time ([place] & [place]) 6:40 AM Repeat troponin schedule in 1 hour. In the event that there is a component of muscle spasm we will trial cyclobenzaprine Lidoderm patch, and acetaminophen. We will sign patient out to the oncoming daytime provider pending repeat troponin and if negative empiric trial of expectant outpatient management. HEART SCORE Chest pain Diagnostic Protocol: [-History/Physical/Gestalt: Slightly Suspicious (0)] [-EKG: Normal and/or unchanged from prior EKG (0)] [- AGE: 45-65 (+1)] [- RISK FACTORS: 3 or more risk factors and/or known CAD (+2)] [-TROPONIN: <= normal limit (0)] - TOTAL SCORE: 3 - Risk Factors: DM, current or recent smoker, HTN, HLD, family hx of CAD, obesity - INTERPRETATION: With a total score of 3 or less, risk of major cardiac event within six weeks 1.7%, likely lower with two negative troponins. I explained to the patient that the risk of subsequent major cardiac event within 1 month is not 0, however risk predicted to be less than 2%. Patient verbalized understanding, accepts this risk and shared and the decision for discharge with PCP follow-up for further evaluation and management. They understand to return to the ED immediately with any worsening symptoms, new symptoms or other concerns. Chronic conditions affecting the care of the patient: hyperlipidemia COPD a nxiety History obtained from an outside historian: N/A External record review: No [facility] EMR records Diagnostic interpretations performed by me: Per my independent interpretation EKG shows: Narrow complex normal sinus rhythm at a rate of 95. Normal axis. Intervals within normal limits. Low voltage in limb leads. Appears similar to prior. Prior dated earlier this month. No acute injury pattern. Medications: Fentanyl ondansetron midazolam normal saline Social determinants of health affecting disposition: N/A Management discussed with: Oncoming ED provider Treatment/interventions considered: Hospitalization but deferred Response to therapies provided: Improved pain following fentanyl HPI This is a 63-year-old female with history of hypertension hyperlipidemia COPD depression and anxiety arriving to the emergency department via private vehicle in the setting of right-sided abdominal pain. Patient reports that her pain began 3 weeks ago. It is in the right side of her chest and radiates into her back. She was seen previously in the emergency department for similar symptoms. She had an x-ray and reassuring laboratory evaluation was discharged.is slightly worse when she lays flat. She reports that tonight she was awoken from sleep with worsening pain. She has not taken any recent falls. She has not noticed a rash to her flank or back. She never had a history of nephrolith iasis. She has never had a PE nor DVT. She does feel short of breath. She has no history of coronary artery disease. She is not a diabetic. She is on antihypertensive medications. She denies routine tobacco, ethanol, and illicits. She has not had any recent diarrhea or abdominal pain. Exam General: Well-appearing in mild distress speaking in complete sentences. Sitting upright in stretcher. Head: Normocephalic, atraumatic. Eye: Extraocular eye movements intact. No conjunctival injection. No scleral icterus. Ear, nose, mouth, throat: Grossly normal inspection. Normal voice, handling secretions normally. Neck: Trachea midline. Cardiovascular: Well-perfused distal extremities. Regular rate and rhythm Respiratory: Nonlabored respiration. Clear lungs bilaterally Gastrointestinal: Nondistended abdomen. Soft nontender no rebound. No guarding. Musculoskeletal: No edema. Moving all 4 extremities spontaneously. Skin: Normal for age and race, grossly normal temperature and turgor. No acute rash. Neurologic: Alert and appropriate, no apparent acute deficits. Psychiatric: Mood and manner are appropriate. Grooming and personal hygiene are appropriate. Related Data Home Medications Medication Instructions Recorded Confirmed lorazepam 0.5 mg tablet 0.5 mg PO TID PRN 09/01/17 02/07/23 lovastatin 40 mg tablet 40 mg PO DAILY 09/01/17 02/07/23 cholestyramine (with sugar) 4 gram 4 gm PO BID 09/20/17 02/07/23 powder for susp in a packet ibuprofen 200 mg tablet 200 - 400 mg PO PRN PRN 09/20/17 02/07/23 glipizide 5 mg tablet 5 mg PO BID 01/03/23 02/07/23 golimumab 12.5 mg/mL intravenous 50 mg IV Q8W 01/03/23 01/03/23 solution (Simponi ARIA) methotrexate 2.5 mg/mL oral 01/03/23 solution mirtazapine 45 mg tablet 45 mg PO QHS 01/03/23 02/07/23 omeprazole 20 mg capsule,delayed 20 mg PO DAILY 01/03/23 02/07/23 release prednisone 5 mg tablet 5 mg PO DAILY 01/03/23 02/07/23 triamterene 37.5 1 cap PO DAILY 01/03/23 02/07/23 mg-hydrochlorothiazide 25 mg capsule Allergies Allergy/AdvReac Type Severity Reaction Status Date / Time amlodipine [From [facility]] Allergy Severe Hives Unverified 02/07/23 04:49 latex Allergy Intermediate Hives Unverified 02/07/23 04:49 Penicillins Allergy Intermediate response Unverified 02/07/23 04:49 as child valsartan Allergy Intermediate Skin Rash Unverified 02/07/23 04:49 lisinopril AdvReac Intermediate cough Unverified 02/07/23 04:49 General Stated Complaint: Chest Pain SHARON: 3 PFSH All Active Problems (Updated 02/07/23 @ 06:27 by Leonardo Fernandes MD) Chest pain, unspecified (Acute) Chest pain (Acute) Medical History (Updated 02/07/23 @ 06:27 by Leonardo Fernandes MD) Obesity Hypertension COPD (chronic obstructive pulmonary disease) Anxiety and depression Right inguinal hernia Hyperlipidemia DEWAYNE (obstructive sleep apnea) Surgical History (Updated 01/01/18 @ 14:37 by [employer] [place]) Ligation of fallopian tube Tonsillectomy and adenoidectomy Repair deviated septum Repair of inguinal hernia (09/24/17) bilateral Dilation and curettage Cholecystectomy Arthroplasty of knee Social History Smoking/Tobacco Use Status: Former Tobacco Use Smoking risk assessment performed?: Yes Alcohol Intake: current Alcohol Intake frequency: holidays/special occasions only Alcohol type: hard liquor Drug use: Never Substance use type: does not use Do you feel safe at home: Yes Do you feel safe in your relationship?: Yes Course Vital Signs Vital signs: Vital Signs Temperature 37.1 C 02/07/23 04:24 Pulse 100 H 02/07/23 04:24 Respiratory Rate 20 02/07/23 04:24 Blood Pressure 201/146 H 02/07/23 04:24 Pulse Oximetry 97 02/07/23 04:24 Temperature 37.1 C 02/07/23 04:24 Temperature Source Temporal Artery Scan 02/07/23 04:24 Pulse 100 H 02/07/23 04:24 Respiratory Rate 20 02/07/23 04:24 Blood Pressure 201/146 H 02/07/23 04:24 Pulse Oximetry 97 02/07/23 04:24 Oxygen Delivery Method Room Air 02/07/23 04:24 Oxygen Flow Rate 0 02/07/23 04:24 Pain Level 10 02/07/23 04:24
[2023-02-07] MEDS: Normal Saline 500 ML IV (04:33)
[2023-02-07] MEDS: fentaNYL 100 MCG/2 ML VIAL 50 MCG IVP (04:34)
[2023-02-07 04:41] LABS: Absolute Basophil Count 0.12 10^3/uL (0.0-0.2); Absolute Eosinophil Count 0.25 10^3/uL (0.0-0.7); Absolute Lymphocyte Count 2.54 10^3/uL (1.2-3.4); Absolute Monocyte Count 0.73 10^3/uL (0.1-0.8); Absolute Neutrophil Count 5.83 10^3/uL (1.2-6.7); Basophils % 1.3; Eosinophils % 2.6; HCT 43.1 % (36.0-46.0); HGB 14.3 g/dL (11.2-15.7); Lymphocytes % 26.5; MCH 30.7 pg (27.0-33.0); MCHC 33.2 % (32.0-36.0); MCV 93 fL (80-95); MPV 9.2 fL (8.0-11.0); Monocytes % 7.6; Platelet Count 334 10^3/uL (130-400); RBC 4.66 10^6/uL (3.93-5.22); RDW-SD 43.9 fL; WBC 9.57 10^3/uL (4.4-10.8)
[2023-02-07 04:43] LABS: BE (Venous) 0 mmol/L (-2-3); HCO3 (Venous) 26 mmol/L (23-28); O2 Sat (Venous) 65 %; TCO2 (Venous) 24 mmol/L (24-29); pCO2 (Venous) 50 mmHg (41-51); pH (Venous) 7.33 (7.31-7.41); pO2 (Venous) 37 mmHg
[2023-02-07] MEDS: Ondansetron 4 MG/2 ML VIAL IVP (04:45)
[2023-02-07 05:03] LABS: BUN 23 mg/dL (7-18); Calcium 9.4 mg/dL (8.5-10.1); Chloride 104 mmol/L (98-107); Estimated GFR 64.09 (mL/min/1.73m2); Glucose 159 mg/dL (74-106); Lipase 31 U/L (16-77); Potassium 3.9 mmol/L (3.5-5.1); Sodium 140 mmol/L (136-145); Troponin I < 50 ng/L (<or=60)
[2023-02-07] MEDS: Midazolam 2 MG/2 ML VIAL 1 MG IVP (05:07)
[2023-02-07] MEDS: Normal Saline Flush 10 ML SYR IVP (05:30)
[2023-02-07] MEDS: Omnipaque 350 MG/ML 100 ML BTL IJ (05:31)
[2023-02-07] MEDS: Omnipaque 350 MG/ML 50 ML BTL IJ (05:31)
[2023-02-07] MEDS: Normal Saline - Diluent 50 ML VIAL IJ (05:32)
--- NOTE | 2023-02-07 06:25 | DI.VRAD_ITS ---
PROCEDURE INFORMATION: Exam: CTA Chest With Contrast CTA Abdomen and Pelvis With Contrast Exam date and time: 02/07/2023 5:19 AM Age: 63 years old Clinical indication: Shortness of breath; Chest wall pain; Other: Chest pain radiating to back TECHNIQUE: Imaging protocol: Computed tomographic angiography of the chest with contrast. Exam focused on the arteries. Computed tomographic angiography of the abdomen and pelvis with contrast. Exam focused on the arteries. 3D rendering (Not supervised by radiologist): MIP and/or 3D reconstructed images were created by the technologist. Contrast material: OMNI 350; Contrast volume: 100 ml; Contrast route: INTRAVENOUS (IV); COMPARISON: CR XR CHEST 2V PA LATERAL 01/24/2023 9:11 PM FINDINGS: VASCULATURE: Pulmonary arteries: Limited evaluation due to suboptimal opacification.. Aorta: Normal aorta without aneurysm or dissection. The major vessels are patent. CHEST: Lungs: Emphysema. Bibasilar atelectasis. Pleural spaces: No pleural effusion or pneumothorax. Heart: Unremarkable. No cardiomegaly. No pericardial effusion. ABDOMEN AND PELVIS: Liver: Hepatic fatty infiltration. Gallbladder and bile ducts: Cholecystectomy. Pancreas: Unremarkable. No mass. No ductal dilation. Spleen: Unremarkable. No splenomegaly. Adrenal glands: Unremarkable. No mass. Kidneys and ureters: 3 cm left renal cyst. No hydronephrosis. Stomach and bowel: No evidence of bowel obstruction. Colonic diverticulosis without diverticulitis. Appendix: Normal appendix. Intraperitoneal space: No free fluid or free air. Urinary bladder: Unremarkable. No mass. Reproductive: Unremarkable as visualized. Lymph nodes: Unremarkable. No enlarged lymph nodes. Bones/joints: Chronic compression deformity of T7. No acute fracture. Soft tissues: Unremarkable. IMPRESSION: No acute findings. Dictated and Authenticated by: Reggie Alvarez MD. Ordering:CRAIG Patterson MD
[2023-02-07] MEDS: Lidocaine 5% Patch 1 PATCH TP (06:46)
[2023-02-07] MEDS: Cyclobenzaprine 10 MG TAB PO (06:46)
[2023-02-07] MEDS: Acetaminophen 500 MG TAB 1000 MG PO (06:46)
--- NOTE | 2023-02-07 07:26 | W.ED.FU ---
Date of service: 02/07/23 Time of Service: 07:26 Follow Up Plan: I have asked health social media community manager Kathy to have the patient be seen in the next 1 to 2 weeks by primary care provider as she has recently located to the area and does not have a PCP. Repeat troponin is being drawn. If negative will proceed with plan to discharge patient with empiric trial of expectant outpatient management. Patient continues to be resting comfortably. She is not requiring any supplemental oxygen and has no respiratory distress. I spoke with Dr. Esquivel from radiology who noted a superior compression deformity of T7 that he did not feel was present on a chest x-ray from earlier this month. This could certainly explain the patient's back pain. I met with the patient. She denied any specific trauma but did note that she had been moving and carrying heavy boxes recently. Per radiology recommendation I ordered an outpatient MRI for the patient to be completed tomorrow. She was having no loss of bowel or bladder control so does not concern for cauda equina. We did discuss however that if she lost sensation between her legs lost control of her bowels or bladder or developed any focal weakness that she should return to the emergency department. Repeat troponin pending. Patient signed out to Dr. Gómez.
--- NOTE | 2023-02-07 07:43 | NUR.NOTE ---
Referral sent to [facility] for a Primary Care- Rt Side Flank Pain within 1-2 weeks
[2023-02-07 08:25] LABS: Troponin I < 50 ng/L (<or=60)
--- NOTE | 2023-02-07 08:49 | W.EDPROG ---
Date of service: 02/07/23 Time of Service: 08:49 Medical Decision Making Care was signed out by Dr. Fernandes with plan to follow-up on delta troponin and then discharge patient. Delta troponin negative. Patient remains chest pain-free. She is complaining of some back pain. A lidocaine patch was placed. Patient will follow-up for outpatient MRI and will need to be established with PCP for urgent follow-up of MRI. All results were discussed with the patient. Discharge plan discussed with the patient. Usual customary discharge instructions were reviewed. Patient understands importance of timely follow-up and need to return should she be worsening or new concerning symptoms. Lab Data Lab results reviewed: Yes I reviewed the patient's lab results. Labs: Laboratory Tests Range/Units 02/07/23 02/07/23 04:33 07:32 WBC (4.4-10.8) 10^3/uL 9.57 RBC (3.93-5.22) 10^6/uL 4.66 Hgb (11.2-15.7) g/dL 14.3 Hct (36.0-46.0) % 43.1 MCV (80-95) fL 93 MCH (27.0-33.0) pg 30.7 MCHC (32.0-36.0) % 33.2 RDW (11.7-14.6) % 13.0 Plt Count (130-400) 10^3/uL 334 MPV (8.0-11.0) fL 9.2 Immature Gran % 1.0 Neutrophils % 61.0 Lymphocytes % 26.5 Monocytes % 7.6 Eosinophils % 2.6 Basophils % 1.3 Nucleated RBC % (0.0-0.3) % 0.0 Absolute Neutrophils (1.2-6.7) 10^3/uL 5.83 Absolute Lymphocytes (1.2-3.4) 10^3/uL 2.54 Absolute Monocytes (0.1-0.8) 10^3/uL 0.73 Absolute Eosinophils (0.0-0.7) 10^3/uL 0.25 Absolute Basophils (0.0-0.2) 10^3/uL 0.12 VBG pH (7.31-7.41) 7.33 VBG pCO2 (41-51) mmHg 50 VBG pO2 mmHg 37 VBG HCO3 (23-28) mmol/L 26 VBG Total CO2 (24-29) mmol/L 24 VBG O2 Saturation % 65 VBG Base Excess (-2-3) mmol/L 0 Sodium (136-145) mmol/L 140 Potassium (3.5-5.1) mmol/L 3.9 Chloride (98-107) mmol/L 104 Carbon Dioxide (21.0-32.0) mmol/L 26.0 Anion Gap (3-11) mmol/L 10.0 BUN (7-18) mg/dL 23 H Creatinine (0.55-1.02) mg/dL 1.0 Est GFR (CKD-EPI 2020) (mL/min/1.73m2) 64.09 Glucose (74-106) mg/dL 159 H Calcium (8.5-10.1) mg/dL 9.4 Troponin I (<or=60) ng/L < 50 < 50 Lipase (16-77) U/L 31 Patient ABO/Rh O Positive Antibody Screen NEGATIVE Sign Out Sign Out Data: Sign Out Comment: Please follow-up repeat troponin and if negative anticipate discharge given reassuring CT scan and nonischemic ECG. Patient has received empiric treatment for muscle spasm with acetaminophen cyclobenzaprine and Lidoderm patch. Last updated by Leonardo Fernandes MD at 02/07/23 06:41 Discharge Plan Disposition Patient Disposition: Home Condition: Stable Discharge Details Clinical Impression: Chest pain, unspecified, Compression fracture of thoracic vertebra, Elevated blood pressure reading Primary Care Provider: Unknown,Unknown ED Provider: Juan Gómez Home Meds and New Rx's Prescriptions: New lidocaine [Lidoderm] 5 % adhesive patch,medicated 1 patch topical DAILY Qty: 15 0RF Rx Instructions: leave on most painful area for up to 12 hrs Continued lovastatin 40 MG tablet 40 mg PO DAILY lorazepam 0.5 MG tablet 0.5 mg PO TID PRN ibuprofen 200 MG tablet 200 - 400 mg PO PRN PRN cholestyramine (with sugar) 4 GM powder in packet 4 gm PO BID glipizide 5 mg tablet 5 mg PO BID mirtazapine 45 mg tablet 45 mg PO QHS methotrexate 2.5 mg/mL solution omeprazole 20 mg capsule,delayed release(DR/EC) 20 mg PO DAILY prednisone 5 mg tablet 5 mg PO DAILY Simponi ARIA 12.5 mg/mL solution 50 mg IV Q8W Rx Instructions: administer over 30 mins triamterene-hydrochlorothiazid 37.5-25 mg capsule 1 cap PO DAILY Discharge Instructions Instructions: Chest Pain (ED) Additional Instructions: You were seen in the emergency department for your back and chest pain. Your EKG and your blood work showed no sign of a heart attack. CT imaging of your chest revealed: a superior compression deformity of T7 not present on the chest x-ray from 01/24/2023. The radiologist has recommended that an MRI be performed in the outpatient setting to assess this finding further. Please use these Lidoderm patches that have been prescribed to you. Referral has been placed for you to have a primary care provider. Please be sure to discuss your ED visit today with your primary care physician. Be sure to discuss your elevated blood pressure on arrival. Patient will discuss findings on CT imaging. If you develop sudden worsening shortness of breath, worsening chest pain, or if you pass out, or any other concerning symptoms please return to the emergency department. For your pain please take medications as follows: 1. Take acetaminophen (Tylenol), 1,000 mg (two 500 mg tabs) every 6 hours
[2023-02-07] MEDS: LORazepam 1 MG TAB PO (09:10)
== END 2023-02-07 09:15 | disposition home or self-care (01) ==
PROVIDERS: Emergency Medicine; Emergency Provider Student in an Organized Health Care Education/Training Program
DX: R07.9 Chest pain, unspecified (principal); R06.02 Shortness of breath; M48.54XA Collapsed vertebra, not elsewhere classified, thoracic region, initial encounter for fracture; I10 Essential (primary) hypertension; J44.9 Chronic obstructive pulmonary disease, unspecified; E78.5 Hyperlipidemia, unspecified; Z87.891 Personal history of nicotine dependence
CPT/HCPCS: 00123; 71275; 80048; 82805; 83690; 86850; 86900; 86901; 93005; 96361; 96374; 96375; 99285; 74174; 84484; 85025; 93010; 99284; J2250; J2405; J3010; J3490; Q9967

== ENCOUNTER → 2023-02-08 09:53 | Outpatient (CLI) | payer MEDICARE, OTHER, SELFPAY ==
--- NOTE | 2023-02-08 | DI.MRI_ITS ---
Exam(s) MR THORACIC SPINE WO EXAM: MR THORACIC SPINE WO CLINICAL HISTORY: BACK PAIN. TECHNIQUE: Multiplanar multisequence MRI of the Thoracic spine was performed. COMPARISON: CR,XR XR CHEST 2V PA LATERAL from 01/24/[address] THORAX ABD/PEL CTA from 02/07/2023 FINDINGS: Bones: There is loss of height of the T7 vertebral body. There is loss of approximately 50 percent o f the height of the vertebral body. There is decreased signal on the T1 weighted images and increase d signal on the T2 weighted images within the vertebral body. Given the findings on the 01/24 chest x-ray and the CT scan from 02/07, this is most consistent with an acute/subacute fracture. There is no retropulsion or central spinal canal stenosis. Alignment is satisfactory. There is increased T1 a nd T2 signal in the T12 vertebra consistent with a hemangioma or fatty rest. Cord: The thoracic cord is normal size and signal intensity. No intrinsic cord lesion is present. Discs: No disc herniation or bulge is present. Soft tissues: Normal. IMPRESSION: Findings consistent with an acute/subacute fracture involving the T7 vertebra. There is loss of appr oximately 50 percent of the height of the vertebral body. No retropulsion or central spinal canal st enosis is present. Unexpected findings DATA REPOSITORY:
--- NOTE | 2023-02-08 16:53 | DI.VRAD_ITS ---
PROCEDURE INFORMATION: Exam: MR Thoracic Spine Without Contrast Exam date and time: 02/08/2023 3:37 PM Age: 63 years old Clinical indication: Pain in thoracic spine TECHNIQUE: Imaging protocol: Magnetic resonance imaging of the thoracic spine without contrast. COMPARISON: 1. CT ABD PELVIS WITH CONTRAST 09/02/2017 1:[address] THORAX ABD/PEL CTA 02/07/2023 5:19 AM FINDINGS: Bones/joints: Twelve rib-bearing thoracic type vertebral bodies. Superior endplate fracture at T7 with 40% loss of vertebral body height, as seen on prior CT angiogram. There is associated marrow edema consistent with acute to subacute fracture; no extension to the posterior elements or masslike component to suggest underlying lesion. Note is made of a vertebral hemangioma at T12 encompassing essentially the entirety of the vertebral body. Spinal cord: Normal signal. No cord compression. T1-T2: No significant disc bulge or herniation. No severe spinal canal stenosis. No significant neural foraminal narrowing. T2-T3: No significant disc bulge or herniation. No severe spinal canal stenosis. No significant neural foraminal narrowing. T3-T4: No significant disc bulge or herniation. No severe spinal canal stenosis. No significant neural foraminal narrowing. T4-T5: No significant disc bulge or herniation. No severe spinal canal stenosis. No significant neural foraminal narrowing. T5-T6: No significant disc bulge or herniation. No severe spinal canal stenosis. No significant neural foraminal narrowing. T6-T7: No significant disc bulge or herniation. No severe spinal canal stenosis. No significant neural foraminal narrowing. T7-T8: No significant disc bulge or herniation. No severe spinal canal stenosis. No significant neural foraminal narrowing. T8-T9: No significant disc bulge or herniation. No severe spinal canal stenosis. No significant neural foraminal narrowing. T9-T10: No significant disc bulge or herniation. No severe spinal canal stenosis. No significant neural foraminal narrowing. T10-T11: No significant disc bulge or herniation. No severe spinal canal stenosis. No significant neural foraminal narrowing. T11-T12: No significant disc bulge or herniation. No severe spinal canal stenosis. No significant neural foraminal narrowing. T12-L1: No significant disc bulge or herniation. No severe spinal canal stenosis. No significant neural foraminal narrowing. Soft tissues: There appears to be a prominent right perineural cyst at C6-C7, as well as clcd-[id number]-right perineural cysts at T1-T2. Spleen: Cystic structure of the spleen is incompletely evaluated, increased from 09/02/2017. IMPRESSION: 1. Acute to subacute superior endplate fracture at T7 with 40% loss of vertebral body height. 2. Cystic structure of the spleen, increased from 09/02/2017, incompletely evaluated. Recommend evaluation with non-emergent PET vs. MRI. Dictated and Authenticated by: Celso Quigley MD. Ordering:CRAIG Patterson MD
== END ==
PROVIDERS: Visit Provider Emergency Medicine
DX: R29.890 Loss of height (principal); S22.060A Wedge compression fracture of T7-T8 vertebra, initial encounter for closed fracture
CPT/HCPCS: 72146

== ENCOUNTER 2023-02-09 05:13 | Emergency (ER) | payer MEDICARE, OTHER, SELFPAY ==
--- NOTE | 2023-02-09 05:10 | ED.GENADUL_ITS ---
Discharge Plan Disposition Patient Disposition: Home Condition: Good Discharge Details Clinical Impression: Compression fracture of thoracic vertebra Primary Care Provider: Unknown,Unknown ED Provider: Maegan Easley Home Meds and New Rx's Prescriptions: New cyclobenzaprine 5 mg tablet 5 mg PO TID Qty: 20 0RF No Action lidocaine [Lidoderm] 5 % adhesive patch,medicated 1 patch topical DAILY Qty: 15 0RF Rx Instructions: leave on most painful area for up to 12 hrs lovastatin 40 MG tablet 40 mg PO DAILY lorazepam 0.5 MG tablet 0.5 mg PO TID PRN ibuprofen 200 MG tablet 200 - 400 mg PO PRN PRN cholestyramine (with sugar) 4 GM powder in packet 4 gm PO BID glipizide 5 mg tablet 5 mg PO BID mirtazapine 45 mg tablet 45 mg PO QHS methotrexate 2.5 mg/mL solution omeprazole 20 mg capsule,delayed release(DR/EC) 20 mg PO DAILY prednisone 5 mg tablet 5 mg PO DAILY Simponi ARIA 12.5 mg/mL solution 50 mg IV Q8W Rx Instructions: administer over 30 mins triamterene-hydrochlorothiazid 37.5-25 mg capsule 1 cap PO DAILY Discharge Instructions Instructions: Vertebral Compression Fracture (ED) Additional Instructions: Tylenol and ibuprofen over the counter; follow the directions on the bottle. Take cyclobenzaprine for muscle spasm up to every 8 hours as needed Establish care with a primary care doctor- someone will call you, you can also reach out. Return to the emergency department for new or worsening symptoms including uncontrollable pain, urinary incontinence, numbness/weakness, or if you have any other concerns. Discharge Data Discharge Date/Time-TO BE ENTERED AT DEPARTURE: 02/09/23 07:19 Medical Decision Making 63yo F with hx of HTN, HLD, COPD, depression, anxiety, presenting via EMS for back pain x 2-3 weeks. History from patient, EMS, and [facility] record review. Back pain worsening over the past several weeks, now severe. No neurologic symptoms. Received 50mcg fentayl via EMS [employer]. Hypertensive and slightly tachycardiac on arrival, suspect 2/t pain. Reassuring physical and neurlogic exam. Not concerning for spinal cord injury or cauda equina. Will treat symptoms with tylenol, toradol, valium for spasm. [facility] records reviewed including prior ED visits and outpatient MRI. Had reassuring workup 2 days ago with reassuring labs, CT chest/abd/pelvis as below with no dissection or intraabdominal pathology, MRI as below with T7 endplate fracture. Patient advised of incidental finding of cystic structure in spleen and advised to followup with PCP. Will not repeat labs or imaging here today. On reassessment she reports her pain is much improved and she requests discharge home. Repeat vital signs improved. Given prescription for short course of cyclobenzaprine, advised to e stablish care with PCP (referral sent). Discharged home; discharge instructions including return precautions were reviewed with patient who verbalized understanding. All questions were answered and they are in full agreement with the plan. Medical Records Medical records reviewed: Yes I reviewed the patient's medical records. Imaging Data Radiologic Study: Imaging: CT Scan Radiologist's impression: 02/07/23 IMPRESSION: 1. There is a superior compression deformity of T7 not present on the chest x- ray from 01/24/2023. An MRI should be considered for further evaluation as to its acuity. 2. No evidence of thoracic aortic aneurysm or dissection. Radiologic Study #2: Imaging: MRI Radiologist's impression: IMPRESSION: 1. Acute to subacute superior endplate fracture at T7 with 40% loss of vertebral body height. 2. Cystic structure of the spleen, increased from 09/02/2017, incompletely evaluated. Recommend evaluation with non-emergent PET vs. MRI. Lab Data Lab results reviewed: Yes I reviewed the patient's lab results. HPI General Mode of arrival: EMS . Date/Time Provider Initiated Documentation: 02/09/23 05:27 . Limitations to Documentation: no limitations . Information obtained by: patient and old records reviewed . HPI Narrative: 63yo F with hx of HTN, HLD, COPD, depression, anxiety, presenting via EMS for back pain x 2-3 weeks. History from patient, EMS, and [facility] record review. Seen in this ED several times over past weeks. Pain is in her right mid-back, severe, and is now constant. Pain is refractory to home medications. No recent trauma. No numbness, tingling, weakness, or bowel or bladder issues. No fevers or rash. No chest pain or shortness of breath. Had an MRI yesterday, does not know the results. Has not yet established with a local PCP. She is otherwise in her usual state of health. Related Data Home Medications Medication Instructions Recorded Confirmed lorazepam 0.5 mg tablet 0.5 mg PO TID PRN 09/01/17 02/09/23 lovastatin 40 mg tablet 40 mg PO DAILY 09/01/17 02/09/23 cholestyramine (with sugar) 4 gram 4 gm PO BID 09/20/17 02/07/23 powder for susp in a packet ibuprofen 200 mg tablet 200 - 400 mg PO PRN PRN 09/20/17 02/09/23 glipizide 5 mg tablet 5 mg PO BID 01/03/23 02/09/23 golimumab 12.5 mg/mL intravenous 50 mg IV Q8W 01/03/23 01/03/23 solution (Simponi ARIA) methotrexate 2.5 mg/mL oral 01/03/23 solution mirtazapine 45 mg tablet 45 mg PO QHS 01/03/23 02/07/23 omeprazole 20 mg capsule,delayed 20 mg PO DAILY 01/03/23 02/09/23 release prednisone 5 mg tablet 5 mg PO DAILY 01/03/23 02/09/23 triamterene 37.5 1 cap PO DAILY 01/03/23 02/07/23 mg-hydrochlorothiazide 25 mg capsule lidocaine 5 % topical patch 1 patch topical DAILY #15 ea 02/07/23 02/09/23 (Lidoderm) cyclobenzaprine 5 mg tablet 5 mg PO TID #20 tabs 02/09/23 Previous Rx's Medication Instructions Recorded lidocaine 5 % topical patch 1 patch topical DAILY #15 ea 02/07/23 (Lidoderm) cyclobenzaprine 5 mg tablet 5 mg PO TID #20 tabs 02/09/23 Allergies Allergy/AdvReac Type Severity Reaction Status Date / Time amlodipine [From [facility]] Allergy Severe Hives Unverified 02/09/23 05:16 latex Allergy Intermediate Hives Unverified 02/09/23 05:16 Penicillins Allergy Intermediate response Unverified 02/07/23 04:49 as child valsartan Allergy Intermediate Skin Rash Unverified 02/07/23 04:49 lisinopril AdvReac Intermediate cough Unverified 02/07/23 04:49 General SHARON: 3 Review of Systems Narrative: see HPI PFSH All Active Problems (Updated 02/09/23 @ 06:45 by Maegan Easley MD) Elevated blood pressure reading (Acute) Compression fracture of thoracic vertebra (Acute) Chest pain, unspecified (Acute) Chest pain (Acute) Medical History (Updated 02/09/23 @ 06:45 by Maegan Easley MD) Obesity Hypertension COPD (chronic obstructive pulmonary disease) Anxiety and depression Right inguinal hernia Hyperlipidemia DEWAYNE (obstructive sleep apnea) Surgical History (Updated 01/01/18 @ 14:37 by [facility]) Ligation of fallopian tube Tonsillectomy and adenoidectomy Repair deviated septum Repair of inguinal hernia (09/24/17) bilateral Dilation and curettage Cholecystectomy Arthroplasty of knee Social History Smoking/Tobacco Use Status: Former Tobacco Use Smoking risk assessment performed?: Yes Alcohol Intake: current Alcohol Intake frequency: holidays/special occasions only Alcohol type: hard liquor Drug use: Never Substance use type: does not use Do you feel safe at home: Yes Do you feel safe in your relationship?: Yes Exam Narrative Exam Narrative: General: Alert, tearful Head: Normocephalic, atraumatic Neck: Trachea midline, Neck supple. Cardiac: RRR, no murmurs appreciated Resp: No respiratory distress. CTAB. Abd: Soft, non-distended, nontender : No suprapubic tenderness. No CVA tenderness. Extremities: No deformities. No peripheral edema. Back: Low thoracic midline tenderness to palpation. Right paraspinal muscle spasm. Neuro: GCS 15. Motor- 5/5 strength symmetric bilateral upper and lower extremities Sensation- Intact to light touch and symmetric multiple dermatomes including upper and lower extremities. No saddle anesthesia.
[2023-02-09 05:11] VITALS: BP 178/82; PULSE 95; RESP 16; TEMP 36.4; O2SAT 93
[2023-02-09] MEDS: Ketorolac 15 MG/ML VIAL IM/IV (05:40)
[2023-02-09] MEDS: diazePAM 10 MG/2 ML SYR 5 MG IVP (05:40)
[2023-02-09] MEDS: Acetaminophen 500 MG TAB 1000 MG PO (05:40)
[2023-02-09 07:16] VITALS: BP 142/90; PULSE 82; RESP 20; TEMP 36.8; O2SAT 98
--- NOTE | 2023-02-09 07:18 | SUR.PHASEI ---
Pt discharged per MD. No IV documented from previous shift, IV was documented by this RN in order to document it's removal.
--- NOTE | 2023-02-09 07:20 | NUR.NOTE ---
Referral given to Care management for needs PCP, establish care, follow up appt for compression fx; [facility]. Nursing Note:
== END 2023-02-09 07:19 | disposition home or self-care (01) ==
PROVIDERS: Emergency Provider Student in an Organized Health Care Education/Training Program
DX: S22.060A Wedge compression fracture of T7-T8 vertebra, initial encounter for closed fracture (principal)
CPT/HCPCS: 96372; 96374; 99284; J1885; J3360

== ENCOUNTER → 2023-02-21 02:06 | Outpatient (CLI) | payer MEDICARE, SELFPAY ==
--- NOTE | 2023-02-21 08:24 | DI.DEXA_ITS ---
Exam(s) XR DEXA BONE DENSITY W/WO DEMETRIA EXAM: XR DEXA BONE DENSITY W/WO DEMETRIA CLINICAL HISTORY: T7 compression fracture,screening for osteoporosis in postmenopausal woman, TECHNIQUE: [employer] [facility] C densitometer analysis of the left forearm. COMPARISON: No exams were available for comparison FINDINGS: The patient could not tolerate the entirety of the exam and ulnar the forearm was analyzed. Theleft forearm bone mineral density measurements correspond to a T-score of the distal 3rd of -2.1, in the osteopenic range.. IMPRESSION: Osteopenia of the forearm
== END ==
PROVIDERS: Visit Provider Nurse Practitioner
DX: Z13.820 Encounter for screening for osteoporosis (principal); Z78.0 Asymptomatic menopausal state; M81.0 Age-related osteoporosis without current pathological fracture
CPT/HCPCS: 77080

== ENCOUNTER 2023-03-28 11:36 | Emergency (ER) | payer MEDICARE, SELFPAY ==
[2023-03-28 11:36] VITALS: BP 126/82; PULSE 90; RESP 16; TEMP 36.9
[2023-03-28 11:42] VITALS: RESP 20
[2023-03-28 11:53] LABS: Bilirubin Negative (Negative); Blood Negative (Negative); Clarity Clear (Clear); Glucose Negative (Negative); Ketones Negative (Negative); Leukocyte Esterase Small (Negative); Nitrite Negative (Negative); Urobilinogen 0.2 mg/dL (Up to 0.2)
[2023-03-28 12:05] LABS: Bacteria Moderate HPF (Negative); C & S Indicated? Yes; Casts Negative LPF (Negative); Crystals Negative HPF (Negative); Epithelial Cells Rare HPF (Negative); Mucus Negative (Negative); RBC Negative HPF (0-2)
--- NOTE | 2023-03-28 14:15 | DI.CT_ITS ---
Exam(s) CT HEAD WO EXAM: CT HEAD WO CLINICAL HISTORY: AMS. TECHNIQUE: Imaging Protocol: Axial computed tomography images with coronal and sagittal reformatted images were created and reviewed COMPARISON: No exams were available for comparison FINDINGS: There are no skull fractures. There is no fluid in the visualized paranasal sinuses. There is no evidence of intracranial hemorrhage, mass effect, or shift of midline structures. There are no extra-axial fluid collections. The ventricles are not enlarged or shifted and there is no blo od within the ventricular system nor within the basal cisterns. Mild symmetrical bilateral frontal atrophy. IMPRESSION: No acute intracranial findings on this noninfused CT scan of the brain. Mild symmetrical bilateral frontal atrophy noted. Discussed with ER physician. RADIATION DOSE DELIVERED: 687.79mGy.cm Total DLP DATA REPOSITORY: All CT scans at this facility are submitted to the National Radiology Data Registry (NRDR) Dose Index Registry (DIR) with the [employer] (ACR). RADIATION OPTIMIZATION: All CT scans at this facility use at least one of these dose optimization te chniques: automated exposure control; mA and/or kV adjustment per patient size (includes targeted exa ms where dose is matched to clinical indication); or iterative reconstruction.
[2023-03-28 14:42] LABS: Abs Immature Grans 0.08 10^3/uL (0.0-0.06); Absolute Basophil Count 0.08 10^3/uL (0.0-0.2); Absolute Eosinophil Count 0.19 10^3/uL (0.0-0.7); Absolute Lymphocyte Count 1.69 10^3/uL (1.2-3.4); Absolute Neutrophil Count 6.85 10^3/uL (1.2-6.7); Basophils % 0.9; HCT 39.3 % (36.0-46.0); HGB 13.1 g/dL (11.2-15.7); Immature Grans % 0.9; MCH 29.3 pg (27.0-33.0); MCHC 33.3 % (32.0-36.0); MCV 88 fL (80-95); Monocytes % 5.3; Neutrophils % 72.9; Platelet Count 367 10^3/uL (130-400); RBC 4.47 10^6/uL (3.93-5.22); RDW 12.9 % (11.7-14.6); RDW-SD 41.6 fL; WBC 9.39 10^3/uL (4.4-10.8)
[2023-03-28 14:51] LABS: Ammonia 15 umol/L (11-32)
[2023-03-28 14:57] LABS: Creatine Kinase 16 U/L (26-192)
[2023-03-28 15:04] LABS: ALT 18 U/L (14-59); AST 12 U/L (15-37); Albumin 3.4 g/dL (3.4-5.0); Alkaline Phosphatase 86 U/L (46-116); Anion Gap 12.9 mmol/L (3-11); BUN 18 mg/dL (7-18); Bilirubin, Total 0.3 mg/dL (0.2-1.0); CO2 23.1 mmol/L (21.0-32.0); CREATININE 0.9 mg/dL (0.55-1.02); Calcium 9.7 mg/dL (8.5-10.1); Chloride 101 mmol/L (98-107); Estimated GFR 72.73 (mL/min/1.73m2); Glucose 145 mg/dL (74-106); NT-proBNP 61 pg/mL (<300); Potassium 3.7 mmol/L (3.5-5.1); Sodium 137 mmol/L (136-145); Total Protein 7.5 g/dL (6.4-8.2); Troponin I < 50 ng/L (< or =60)
--- NOTE | 2023-03-28 15:15 | RT.EKG_ITS ---
APPROVED REPORT Exam: Resting ECG Reason for Exam: AMS Patient Location: E HR:82 bpm ECG Measurements Heart Rate 82 AXIS IL 156 P 16 QRSd 64 QRS 55 QT 374 T 31 QTc 438 Conclusion Sinus rhythm normal axis no acute ST changes
[2023-03-28 15:20] LABS: *AMPHETAMINES SCREEN URINE Negative (Negative); *BARBITURATES SCREEN URINE Negative (Negative); *BENZODIAZEPINES SCREEN URINE Negative (Negative); Cannabinoids THC Negative (Negative); Cocaine Screen,Urine Negative (Negative); METHADONE URINE SCREEN Negative (Negative); OPIATES URINE SCREEN Negative (Negative); Tricyclic Antidepressants Negative (Negative)
[2023-03-28] MEDS: cefTRIAXone 1 GM/50 ML BAG IVPB (16:25)
[2023-03-28 17:07] VITALS: BP 124/80
--- NOTE | 2023-03-28 20:05 | W.ED.GENAD ---
HPI General Stated Complaint: GenMedical SHARON: 3 Date/Time Provider Initiated Documentation: 03/28/23 12:13. Limitations to Documentation: no limitations. Information obtained by: patient and family. HPI Narrative: 63-year-old female past medical history of diabetes presents for evaluation of altered mental status. The reports that around 10:30 AM they were at the [facility] when he noted that she seemed to be confused. She states that she knew who she was, but did not know where they were or what they were doing there. She did not pass her vision test at the [facility]. He states that she Sitting down and just staring blankly. No seizure activity. Was very confused. He states that she did not have any facial droop or slurred speech, and she would come in and out of this. He states that when hE brought her to the emergency department, her symptoms seem to be improved. She he states that this has happened previously when she had UTI Related Data Home Medications Medication Instructions Recorded Confirmed lorazepam 0.5 mg tablet 0.5 mg PO TID PRN 09/01/17 03/28/23 lovastatin 40 mg tablet 40 mg PO DAILY 09/01/17 03/28/23 cholestyramine (with sugar) 4 gram 4 g PO BID 09/20/17 03/28/23 powder for susp in a packet ibuprofen 200 mg tablet 200 - 400 mg PO PRN PRN 09/20/17 03/28/23 glipizide 5 mg tablet 5 mg PO BID 01/03/23 03/28/23 golimumab 12.5 mg/mL intravenous 50 mg IV Q8W 01/03/23 02/13/23 solution (Simponi ARIA) methotrexate 2.5 mg/mL oral 01/03/23 02/13/23 solution mirtazapine 45 mg tablet 45 mg PO QHS 01/03/23 03/28/23 omeprazole 20 mg capsule,delayed 20 mg PO DAILY 01/03/23 03/28/23 release triamterene 37.5 1 cap PO DAILY 01/03/23 03/28/23 mg-hydrochlorothiazide 25 mg capsule cephalexin 500 mg capsule 500 mg PO BID 5 days #10 caps 03/28/23 Previous Rx's Medication Instructions Recorded cephalexin 500 mg capsule 500 mg PO BID 5 days #10 caps 03/28/23 Allergies Allergy/AdvReac Type Severity Reaction Status Date / Time amlodipine [From [facility]] Allergy Severe Hives Verified 03/28/23 11:47 latex Allergy Intermediate Hives Verified 03/28/23 11:47 Penicillins Allergy Intermediate response Verified 03/28/23 11:47 as child valsartan Allergy Intermediate Skin Rash Verified 03/28/23 11:47 lisinopril AdvReac Intermediate cough Verified 03/28/23 11:47 PFSH All Active Problems Acute delirium (Acute) UTI (urinary tract infection) (Acute) On prednisone therapy (Acute) Medical History Obesity Hypertension COPD (chronic obstructive pulmonary disease) Anxiety and depression Right inguinal hernia Hyperlipidemia DEWAYNE (obstructive sleep apnea) Surgical History Ligation of fallopian tube Tonsillectomy and adenoidectomy Repair deviated septum Repair of inguinal hernia (09/24/17) bilateral Dilation and curettage Cholecystectomy Arthroplasty of knee Social History Smoking/Tobacco Use Status: Former Tobacco Use Smoking risk assessment performed?: Yes Alcohol Intake: current Alcohol Intake frequency: holidays/special occasions only Alcohol type: hard liquor Drug use: Never Substance use type: does not use Housing: apartment Do you feel safe at home: Yes Do you feel safe in your relationship?: Yes Exam Narrative Exam Narrative: Review of Systems: All systems reviewed & are unremarkable except as noted in HPI and below: CONSTITUTIONAL: Alert and oriented Well-developed, no acute distress HEENT: NCAT EYES: PERRL, no conjunctival injection EARS: no external abnormality NOSE nares patent MOUTH Moist MM NECK: Symmetric, trachea midline, No thyromegaly THROAT oropharynx clear CVS: RRR, No murmurs or gallops. Peripheral pulses 2+ and equal in all extremities Brisk capillary refill in all extremities. No peripheral edema RESP: Unlabored respiratory effort, Clear to auscultation bilaterally No wheezes rales or rhonchi GI: Soft, Nontender, Nondistended, No organomegaly MSK: Extremities with full range of motion, no deformity or TTP SKIN: Warm, Dry. No rashes or lesions. NEURO: No focal neurologic deficits. contribution solicitor II-XII grossly intact Sensation grossly intact Normal strength throughout PSYCH: Appropriate mood and affect Course Vital Signs Vital signs: Vital Signs Temperature 36.9 C 03/28/23 11:36 Pulse 90 03/28/23 11:36 Respiratory Rate 16 03/28/23 11:36 Blood Pressure 126/82 03/28/23 11:36 Temperature 36.9 C 03/28/23 11:36 Temperature Source Skin 03/28/23 11:36 Pulse 90 03/28/23 11:36 Respiratory Rate 20 03/28/23 11:42 Respiratory Effort Normal 03/28/23 11:42 Respiratory Depth Normal 03/28/23 11:42 Respiratory Pattern Normal 03/28/23 11:42 Blood Pressure 124/80 03/28/23 17:07 Pain Level 10 03/28/23 11:36 Lab/Test Results Lab/Test Results: 03/28/23 11:35 Urine - Reflex from Ua Urine Culture - Pending Laboratory Tests Range/Units 03/28/23 03/28/23 03/28/23 11:35 14:32 14:50 WBC (4.4-10.8) 10^3/uL 9.39 RBC (3.93-5.22) 10^6/uL 4.47 Hgb (11.2-15.7) g/dL 13.1 Hct (36.0-46.0) % 39.3 MCV (80-95) fL 88 MCH (27.0-33.0) pg 29.3 MCHC (32.0-36.0) % 33.3 RDW (11.7-14.6) % 12.9 Plt Count (130-400) 10^3/uL 367 MPV (8.0-11.0) fL 9.0 Immature Gran % 0.9 Neutrophils % 72.9 Lymphocytes % 18.0 Monocytes % 5.3 Eosinophils % 2.0 Basophils % 0.9 Nucleated RBC % (0.0-0.3) % 0.0 Absolute Neutrophils (1.2-6.7) 10^3/uL 6.85 H Absolute Lymphocytes (1.2-3.4) 10^3/uL 1.69 Absolute Monocytes (0.1-0.8) 10^3/uL 0.50 Absolute Eosinophils (0.0-0.7) 10^3/uL 0.19 Absolute Basophils (0.0-0.2) 10^3/uL 0.08 Sodium (136-145) mmol/L 137 Potassium (3.5-5.1) mmol/L 3.7 Chloride (98-107) mmol/L 101 Carbon Dioxide (21.0-32.0) mmol/L 23.1 Anion Gap (3-11) mmol/L 12.9 H BUN (7-18) mg/dL 18 Creatinine (0.55-1.02) mg/dL 0.9 Est GFR (CKD-EPI 2020) (mL/min/1.73m2) 72.73 Glucose (74-106) mg/dL 145 H Calcium (8.5-10.1) mg/dL 9.7 Total Bilirubin (0.2-1.0) mg/dL 0.3 AST (15-37) U/L 12 L ALT (14-59) U/L 18 Alkaline Phosphatase (46-116) U/L 86 Ammonia (11-32) umol/L 15 Creatine Kinase (26-192) U/L 16 L Troponin I (< or =60) ng/L < 50 NT-Pro-B Natriuret Pep (<300) pg/mL 61 Total Protein (6.4-8.2) g/dL 7.5 Albumin (3.4-5.0) g/dL 3.4 Urine Color (Yellow) Yellow Urine Clarity (Clear) Clear Urine pH (5-8) 6.0 Ur Specific [place] (1.005-1.025) 1.010 Urine Protein (Negative) mg/dL Negative Urine Ketones (Negative) mg/dL Negative Urine Blood (Negative) Negative Urine Nitrite (Negative) Negative Urine Bilirubin (Negative) Negative Urine Urobilinogen (Up to 0.2) mg/dL 0.2 Ur Leukocyte Esterase (Negative) Small H Urine RBC (0-2) HPF Negative Urine WBC (0-5) HPF 10-20 H Ur Epithelial Cells (Negative) HPF Rare Urine Crystals (Negative) HPF Negative Urine Bacteria (Negative) HPF Moderate Urine Casts (Negative) LPF Negative Urine Mucus (Negative) Negative Ur Culture Indicated? Yes Urine Glucose (Negative) mg/dL Negative Urine Opiates Screen (Negative) Negative Urine Methadone Screen (Negative) Negative Ur Barbiturates Screen (Negative) Negative Ur Tricyclics Screen (Negative) Negative Ur Amphetamines Screen (Negative) Negative U Benzodiazepines Scrn (Negative) Negative Urine Cocaine Screen (Negative) Negative Ur THC Screen (Negative) Negative Medical Decision Making Emergent evaluation of altered mental status. Initial differential includes TIA, delirium, infectious etiology, doubt CVA. Doubt seizure. Patient has no neurologic deficit at this time. She is hemodynamically stable and afebrile. Plan for CT imaging and lab work to evaluate possible etiologies. Lab work reviewed. No leukocytosis or anemia. Urinalysis reviewed. Leukocyte esterase and white blood cell count noted. Culture has been sent. Given these findings and her change in mental status, will treat for UTI. Dose of Rocephin given in the emergency department and will discharge with antibiotics. At this time the patient has no complaints in the feels comfortable taking her home. Strict return precautions including any additional episodes of altered mental status, signs of stroke discussed with . Follow-up closely with PCP. Medical Records Medical records reviewed: Yes I reviewed the patient's medical records. Lab Data Lab results reviewed: Yes I reviewed the patient's lab results. ECG Data Attestation: I personally reviewed and interpreted this ECG (s) as follows: Interpretation: Sinus 82, normal axis, no acute ischemic changes Quality:SDOH Health Related Social Needs: No Data to Display Discharge Plan Disposition Patient Disposition: Home Discharge Details Clinical Impression: UTI (urinary tract infection), Acute delirium Primary Care Provider: Unknown,Unknown ED Provider: Jerome Robins Home Meds and New Rx's Prescriptions: New cephalexin 500 mg capsule 500 mg PO BID 5 Days Qty: 10 0RF No Action lovastatin 40 MG tablet 40 mg PO DAILY lorazepam 0.5 MG tablet 0.5 mg PO TID PRN ibuprofen 200 MG tablet 200 - 400 mg PO PRN PRN cholestyramine (with sugar) 4 GM powder in packet 4 g PO BID glipizide 5 mg tablet 5 mg PO BID mirtazapine 45 mg tablet 45 mg PO QHS methotrexate 2.5 mg/mL solution omeprazole 20 mg capsule,delayed release(DR/EC) 20 mg PO DAILY Simponi ARIA 12.5 mg/mL solution 50 mg IV Q8W Rx Instructions: administer over 30 mins triamterene-hydrochlorothiazid 37.5-25 mg capsule 1 cap PO DAILY Discharge Instructions Instructions: Urinary Tract Infection in Women (ED) Additional Instructions: START ANTIBIOTICS PRESCRIBED MONITOR SYMPTOMS AND RETURN TO THE ED WITH ANY INCREASING CONFUSION, FEVER OR OTHER CONCERNS FOLLOW UP WITH PCP NEXT WEEK Discharge Data Discharge Date/Time-TO BE ENTERED AT DEPARTURE: 03/28/23 17:32
--- NOTE | 2023-03-30 10:12 | NUR.NOTE ---
Accessed Pt chart to obtain name of Antibiotics patient was prescribed at her visit.
== END 2023-03-28 17:32 | disposition home or self-care (01) ==
PROVIDERS: Emergency Medicine; Emergency Provider Emergency Medicine
DX: N39.0 Urinary tract infection, site not specified (principal); R41.0 Disorientation, unspecified; I10 Essential (primary) hypertension; J44.9 Chronic obstructive pulmonary disease, unspecified; E78.5 Hyperlipidemia, unspecified; Z79.899 Other long term (current) drug therapy; Z79.84 Long term (current) use of oral hypoglycemic drugs; Z87.891 Personal history of nicotine dependence
CPT/HCPCS: 80053; 80307; 82550; 87077; 93005; 96365; 99284; 70450; 81003; 81015; 82140; 83880; 84484; 85025; 87086; 87186; 93010; J0696

== ENCOUNTER 2023-04-18 19:04 | Emergency (ER) | payer MEDICARE, SELFPAY ==
[2023-04-18 19:09] VITALS: BP 147/96; PULSE 94; RESP 20; O2SAT 98
--- NOTE | 2023-04-18 19:26 | W.ED.GENAD ---
HPI General Mode of arrival: ambulatory. Date/Time Provider Initiated Documentation: 04/18/23 19:05. Limitations to Documentation: no limitations. Information obtained by: patient. History of Present Illness 63 year old F presents to the emergency department with the chief complaint of left sided face swelling, described as mild, Quality is described as aching, Patient started experiencing this hour(s) (1) and it has been constant. No relieving factors improve symptom(s), No exacerbating factors reported . Patient notes no other symptoms.. Patient did receive the following treatments prior to arrival, none Related Data Home Medications Medication Instructions Recorded Confirmed lorazepam 0.5 mg tablet 0.5 mg PO TID PRN 09/01/17 04/18/23 lovastatin 40 mg tablet 40 mg PO DAILY 09/01/17 04/18/23 cholestyramine (with sugar) 4 gram 4 g PO BID 09/20/17 04/18/23 powder for susp in a packet ibuprofen 200 mg tablet 200 - 400 mg PO PRN PRN 09/20/17 04/18/23 glipizide 5 mg tablet 5 mg PO BID 01/03/23 04/18/23 golimumab 12.5 mg/mL intravenous 50 mg IV Q8W 01/03/23 02/13/23 solution (Simponi ARIA) methotrexate 2.5 mg/mL oral 01/03/23 02/13/23 solution mirtazapine 45 mg tablet 45 mg PO QHS 01/03/23 04/18/23 omeprazole 20 mg capsule,delayed 20 mg PO DAILY 01/03/23 04/18/23 release triamterene 37.5 1 cap PO DAILY 01/03/23 04/18/23 mg-hydrochlorothiazide 25 mg capsule amoxicillin 875 mg-potassium 1 tab PO BID #14 tabs 04/18/23 clavulanate 125 mg tablet prednisone 5 mg tablet mg 04/18/23 Previous Rx's Medication Instructions Recorded amoxicillin 875 mg-potassium 1 tab PO BID #14 tabs 04/18/23 clavulanate 125 mg tablet Allergies Allergy/AdvReac Type Severity Reaction Status Date / Time amlodipine [From [facility]] Allergy Severe Hives Verified 04/18/23 19:13 latex Allergy Intermediate Hives Verified 04/18/23 19:13 Penicillins Allergy Intermediate response Verified 04/18/23 19:13 as child valsartan Allergy Intermediate Skin Rash Verified 04/18/23 19:13 lisinopril AdvReac Intermediate cough Verified 04/18/23 19:13 General Stated Complaint: Allergic SHARON: 3 Review of Systems All systems reviewed & are unremarkable except as noted in HPI and below Constitutional Constitutional: Denies chills, Denies fever(s) and Denies weakness Cardiovascular Cardiovascular: Denies chest pain and Denies dyspnea Respiratory Respiratory: Denies cough and Denies dyspnea Gastrointestinal Gastrointestinal: Denies abdominal pain, Denies nausea and Denies vomiting Integumentary/Breasts Skin/Breast: Denies rash Neurologic Neurologic: Denies weakness Exam Const General: no acute distress Orientation: alert HENMT Ears: external ears normal General nose exam: external nose normal Mouth: moist mucous membranes Throat: posterior oropharynx normal and uvula midline Eyes General: appearance normal, both eyes and all related structures Neck Neck: normal visual inspection, full ROM, no lymphadenopathy, no meningeal signs and trachea midline Resp Effort & Inspection: normal respiratory effort and able to speak in complete sentences Cardio Rate: regular rate Skin General skin exam: no rashes or lesions noted Neuro General: patient alert and patient oriented x3 Extrem General: normal to inspection Psych Mental Status: mental status grossly normal Course Vital Signs Vital signs: Vital Signs Pulse 94 H 04/18/23 19:09 Respiratory Rate 20 04/18/23 19:09 Blood Pressure 147/96 H 04/18/23 19:09 Pulse Oximetry 98 04/18/23 19:09 Pulse 94 H 04/18/23 19:09 Respiratory Rate 20 04/18/23 19:09 Blood Pressure 147/96 H 04/18/23 19:09 Blood Pressure Position Sitting 04/18/23 19:09 Pulse Oximetry 98 04/18/23 19:09 Oxygen Delivery Method Room Air 04/18/23 19:09 Oxygen Flow Rate 0 04/18/23 19:09 Pain Level 2 04/18/23 19:09 Medical Decision Making 63 yo female with history of rheumatoid arthritis on prednisone chronically comes in with cc of left side of her face being swollen starting 1-2 hours ago. She denies feves, has mild discomfort at the swelling but other [place] no oral pain. Denies fevers, dyspnea, rashes. She is caox4 speaking clearly on arrival. HAs left parotid swelling, no fluctuance, no erythema or warmth, normal posterior pharynx, no submandibular swelling, no restricted neck movements or neck swelling, no salivary stones evident on exam. Suspect parotitis and likely early suppurative parotitis given she is immunosuppressed. HAd similar presentation last December with negative CT, low concern for abscess so will defer imaging today. She tolerated augmentin last time so will have her start this, advised to f/u with pcp and return precautions given Differential Diagnosis Differential Diagnosis: parotitis, suppurative parotitis Quality:SDOH Health Related Social Needs: No Data to Display PFSH All Active Problems (Updated 04/18/23 @ 19:30 by Jt Au MD) Swelling of left parotid gland (Acute) Acute delirium (Acute) UTI (urinary tract infection) (Acute) On prednisone therapy (Acute) Medical History Obesity Hypertension COPD (chronic obstructive pulmonary disease) Anxiety and depression Right inguinal hernia Hyperlipidemia DEWAYNE (obstructive sleep apnea) Surgical History Ligation of fallopian tube Tonsillectomy and adenoidectomy Repair deviated septum Repair of inguinal hernia (09/24/17) bilateral Dilation and curettage Cholecystectomy Arthroplasty of knee Social History Smoking/Tobacco Use Status: Former Tobacco Use Smoking risk assessment performed?: Yes Alcohol Intake: current Alcohol Intake frequency: holidays/special occasions only Alcohol type: hard liquor Drug use: Never Substance use type: does not use Housing: apartment Do you feel safe at home: Yes Do you feel safe in your relationship?: Yes Discharge Plan Disposition Patient Disposition: Home Condition: Stable Discharge Details Clinical Impression: Swelling of left parotid gland Primary Care Provider: Unknown,Unknown ED Provider: Jt Au Home Meds and New Rx's Prescriptions: New amoxicillin-pot clavulanate 875-125 mg tablet 1 tab PO BID Qty: 14 0RF Continued lovastatin 40 MG tablet 40 mg PO DAILY lorazepam 0.5 MG tablet 0.5 mg PO TID PRN ibuprofen 200 MG tablet 200 - 400 mg PO PRN PRN cholestyramine (with sugar) 4 GM powder in packet 4 g PO BID glipizide 5 mg tablet 5 mg PO BID mirtazapine 45 mg tablet 45 mg PO QHS methotrexate 2.5 mg/mL solution omeprazole 20 mg capsule,delayed release(DR/EC) 20 mg PO DAILY Simponi ARIA 12.5 mg/mL solution 50 mg IV Q8W Rx Instructions: administer over 30 mins triamterene-hydrochlorothiazid 37.5-25 mg capsule 1 cap PO DAILY prednisone 5 mg tablet Patient Comments: TAKE ONE TABLET BY MOUTH EVERY DAY Discharge Instructions Additional Instructions: you can use warm compresses over the swelling and take things such as lemon drops to help increase saliva production follow up with your primary care provider if not improving within a week if you feel more ill, have severe worsening pain or inability to swallow liquids return to the emergency department
[2023-04-18] MEDS: Amoxicillin 875/Clav. 125 TAB PO (19:38)
== END 2023-04-18 19:43 | disposition home or self-care (01) ==
PROVIDERS: Emergency Provider Emergency Medicine
DX: K11.20 Sialoadenitis, unspecified (principal); I10 Essential (primary) hypertension; E78.5 Hyperlipidemia, unspecified; J44.9 Chronic obstructive pulmonary disease, unspecified; Z87.891 Personal history of nicotine dependence
CPT/HCPCS: 99283

== ENCOUNTER 2023-05-09 15:44 | Outpatient (REF) | payer MEDICARE, SELFPAY ==
[2023-05-09 21:33] LABS: Abs Immature Grans 0.14 10^3/uL (0.0-0.06); Absolute Eosinophil Count 0.15 10^3/uL (0.0-0.7); Absolute Lymphocyte Count 2.75 10^3/uL (1.2-3.4); Absolute Monocyte Count 0.64 10^3/uL (0.1-0.8); Basophils % 1.1; Eosinophils % 1.3; HCT 44.5 % (36.0-46.0); HGB 14.5 g/dL (11.2-15.7); Immature Grans % 1.2; Lymphocytes % 24.2; MCH 29.6 pg (27.0-33.0); MCHC 32.6 % (32.0-36.0); MCV 91 fL (80-95); MPV 10.6 fL (8.0-11.0); Monocytes % 5.6; Neutrophils % 66.6; Platelet Count 414 10^3/uL (130-400); RDW 14.9 % (11.7-14.6); RDW-SD 48.2 fL; WBC 11.35 10^3/uL (4.4-10.8)
[2023-05-09 21:35] LABS: Absolute Basophil Count 0.12 10^3/uL (0.0-0.2); Absolute Neutrophil Count 7.56 10^3/uL (1.2-6.7)
[2023-05-09 21:49] LABS: ALT 30 U/L (14-59); AST 12 U/L (15-37); Albumin 3.7 g/dL (3.4-5.0); Alkaline Phosphatase 105 U/L (46-116); Anion Gap 10.5 mmol/L (3-11); BUN 15 mg/dL (7-18); Bilirubin, Total 0.4 mg/dL (0.2-1.0); CO2 29.5 mmol/L (21.0-32.0); CREATININE 0.9 mg/dL (0.55-1.02); Chloride 103 mmol/L (98-107); Cholesterol 213 mg/dL (<200); Estimated GFR 72.73 (mL/min/1.73m2); Glucose 74 mg/dL (74-106); HDL Cholesterol 44 mg/dL (40-60); Sodium 143 mmol/L (136-145); Total Protein 7.5 g/dL (6.4-8.2); Triglyceride 480 mg/dL (<150)
[2023-05-09 21:55] LABS: Hemoglobin A1C 7.1 % (<5.7)
[2023-05-09 22:11] LABS: LDL CHOLESTEROL 105 mg/dL (<100)
== END 2023-05-09 15:45 | disposition home or self-care (01) ==
LOC: NCHCN 15:44
PROVIDERS: Visit Provider Family Medicine
DX: E11.9 Type 2 diabetes mellitus without complications (principal); M06.9 Rheumatoid arthritis, unspecified
CPT/HCPCS: 80053; 80061; 83721; 83036; 85025

== ENCOUNTER 2023-12-06 00:55 | Outpatient (CLI) | payer MEDICARE, SELFPAY ==
--- NOTE | 2023-12-06 | DI.MAMMO_ITS ---
Exam(s) MAMMO SCREENING EXAM: MAMMO SCREENING CLINICAL HISTORY: SCREENING, Z12.31 TECHNIQUE: Mammograms were interpreted according to the usual protocol including computer analysis w [employer] CAD system, tomosynthesis and C-view imaging. COMPARISON: No exams were available for comparison. Outside examinations have not yet arrived. FINDINGS: The breasts are composed of scattered fibroglandular densities, Breast Density category B. No suspicious masses or suspicious microcalcifications are seen. No skin thickening or abnormal axillary lymph nodes are seen. There has been no significant change from prior exams. IMPRESSION: BI-RADS Category 1, Negative mammogram Yearly screening mammography is recommended. Breast Density - Category B, scattered fibroglandular densities. A negative radiographic report should not delay biopsy if a dominant or clinically suspicious mass is present. Up to ten percent of cancers are not identified on mammography. A negative report may reinforce clinical impression. Adenosis and dense breasts may obscure an underlying neoplasm. False positive reports average 6 to 10%. Patient will receive a letter notifying them of these results.
== END 2023-12-06 01:15 ==
LOC: DI 00:55
PROVIDERS: Visit Provider Family Medicine
DX: Z12.31 Encounter for screening mammogram for malignant neoplasm of breast (principal)
CPT/HCPCS: 77063; 77067

== ENCOUNTER 2023-12-12 13:25 | Outpatient (REF) | payer MEDICARE, SELFPAY ==
--- NOTE | 2023-12-12 13:15 | PAPFT_PTH ---
PATIENT: Tasha Alexander LOC: [facility] U#:[id number] AGE/SX: 63/F ROOM: RE12/12/[address]: Faith Remy MD : [id number] BED: DIS: 12/12/2023 SPEC #: [id number] RECD: 12/12/23 14:22 STATUS: STEFAN REQ #: [id number] SALTY: 12/12/23 13:[address]: Faith Remy DEPT: [facility] Cytology RECD BY: Salud Moon ENTERED: 12/12/23 14:23 SP TYPE: PAPFT OT DR: Unknown,Unknown Tissues: 1 - CX/ENDOCX FOR PAP SMEARS Procedures: PAP THIN PREP/[facility] Screening HPV DNA PROBE Comments: [id number] (HPV 16 & 18/45)
== END 2023-12-12 13:26 | disposition home or self-care (01) ==
LOC: LBN 13:25
PROVIDERS: Visit Provider Obstetrics & Gynecology
DX: Z12.4 Encounter for screening for malignant neoplasm of cervix (principal)
CPT/HCPCS: 88142; 87624

== ENCOUNTER 2023-12-20 14:49 | Outpatient (CLI) | payer MEDICARE, SELFPAY ==
--- NOTE | 2023-12-20 | DI.CTLCSR_ITS ---
Exam(s) CT CHEST LUNG CANCER SCREEN EXAM: CT CHEST LUNG CANCER SCREEN CLINICAL HISTORY: EX SMOKER, Z87.891, SCREENING FOR LUNG CANCER TECHNIQUE: Imaging Protocol: Axial computed tomography images with coronal and sagittal reformatted images were created and reviewed COMPARISON: CT CT THORAX ABD/PEL CTA from 02/07/2023 FINDINGS: Tracheobronchial tree: Patent where visualized. No bronchiectasis. Pulmonary parenchyma: No consolidation or dominant measurable mass. Mild centrilobular emphysematous changes are present. Lung Nodules: None. Mediastinum and Aleshia: No dominant adenopathy or fluid collection. The esophagus is unremarkable. Thyroid gland: Unremarkable. Lymph nodes: Unremarkable. Pleura: No effusion or pneumothorax. Heart: The heart is not dilated. Coronary artery calcification is present. No pericardial effusion. Aorta: Thoracic aorta non-dilated.Atherosclerotic calcification is present. Upper abdomen: Unremarkable. Soft Tissues: Unremarkable. Bones: Age-appropriate degenerative changes are present. There has been further compression of the T 7 vertebral body since the prior examination from 02/07/2023. There is now loss of approximately 50 percent of the height of the vertebral body centrally. Mild retropulsion is seen in this central spi nal canal. No significant central spinal canal stenosis or cord compression is seen. IMPRESSION: 1. No suspicious pulmonary nodules. 2. Further compression of the T7 compression fracture deformity. There is now approximately 50 perce nt loss of height of the vertebral body centrally. No significant central spinal canal stenosis. Lung RADS Cat 1 - Negative: No nodules and definitely benign nodules Lung-RADS 1.0 CATEGORIES: Category 0 - Prior chest CT exam(s) being located for comparison. Category 1 - Annual screening in 12 months. No nodules or definitely benign nodules. Category 2 - Annual screening in 12 months. Benign appearance. Nodules with low likelihood of becomin g active cancer. Category 3 - 6-month follow-up. Probably benign. Short-term follow-up suggested. Nodules with low lik elihood of becoming active cancer. Category 4A - 3-month follow-up and CT/PET if >8 mm in size. Suspicious finding. Findings which requi re additional testing. Category 4B - Findings which require additional testing and tissue sampling. Suspicious finding. Category 4X - Category 3 or 4 nodules with additional features or imaging findings that increases the suspicion of malignancy. Modifier S- Potentially clinically significant finding. (Non lung cancer) RADIATION DOSE DELIVERED: 40.87mGy.cm Total DLP 40.87mGy.cmTotal DLP DATA REPOSITORY: All CT scans at this facility are submitted to the National Radiology Data Registry (NRDR) Dose Index Registry (DIR) with the [employer] ([employer]). RADIATION OPTIMIZATION: All CT scans at this facility use at least one of these dose optimization te chniques: automated exposure control; mA and/or kV adjustment per patient size (includes targeted exa ms where dose is matched to clinical indication); or iterative reconstruction.
== END 2023-12-20 15:09 ==
LOC: DI 14:49
PROVIDERS: Visit Provider Family Medicine
DX: Z12.2 Encounter for screening for malignant neoplasm of respiratory organs (principal); Z87.891 Personal history of nicotine dependence
CPT/HCPCS: 71271

== ENCOUNTER 2024-01-23 02:25 | Outpatient (CLI) | payer MEDICARE, SELFPAY ==
--- NOTE | 2024-01-23 | DI.DEXA_ITS ---
Exam(s) XR DEXA BONE DENSITY W/WO DEMETRIA EXAM: XR DEXA BONE DENSITY W/WO DEMETRIA CLINICAL HISTORY: M48.54XA Collapsed vertebra non elsewhere classified, thoracic region, TECHNIQUE: COMPARISON: CR XR DEXA BONE DENSITY W/WO DEMETRIA from 02/21/2023 FINDINGS: Lateral Spine Image: Unremarkable. No compression deformities identified. Left hip: Total T-Score: -0.8 Total Z-Score: 0.2 T- and Z-scores: There is no evidence of osteoporosis. Lumbar Spine: Total T-Score: -0.2 Total Z-Score: -0.5 T- and Z-scores: Findings are consistent with osteopenia. There is no evidence of osteoporosis. Left forearm: Total T-score:-2.3. This is unchanged compared to prior examination from 02/21/2023. Total Z-score:-1.0. T and Z-score is: Findings are consistent with osteopenia. There is again seen osteoporosis in the m iddle 3rd of the left forearm with a T-score of -2.6. IMPRESSION: 1. No change in appearance of the left forearm since 02/21/2023. 2. No evidence of osteoporosis in the left hip or lumbar spine.
== END 2024-01-23 02:45 ==
LOC: DI 02:25
PROVIDERS: Visit Provider Family Medicine
DX: M48.54XA Collapsed vertebra, not elsewhere classified, thoracic region, initial encounter for fracture (principal); Z13.820 Encounter for screening for osteoporosis; M85.89 Other specified disorders of bone density and structure, multiple sites
CPT/HCPCS: 77080

== ENCOUNTER 2024-03-05 15:31 | Outpatient (REF) | payer MEDICARE, SELFPAY ==
[2024-03-05 15:21] LABS: Vitamin D 25 Total 29.4 ng/mL (30-100)
== END 2024-03-05 15:32 | disposition home or self-care (01) ==
LOC: NCHCN 15:31
PROVIDERS: Visit Provider Family Medicine
DX: M81.0 Age-related osteoporosis without current pathological fracture (principal)
CPT/HCPCS: 82306

== ENCOUNTER 2024-09-03 19:02 | Outpatient (REF) | payer MEDICARE, SELFPAY ==
[2024-09-03 17:10] LABS: Anion Gap 10.7 mmol/L (3-11); BUN 8 mg/dL (7-18); CO2 28.3 mmol/L (21.0-32.0); CREATININE 1.3 mg/dL (0.55-1.02); Calcium 8.7 mg/dL (8.5-10.1); Calculated LDL 54 mg/dL (<100); Chloride 96 mmol/L (98-107); Cholesterol 163 mg/dL (<200); Estimated GFR 46.49 (mL/min/1.73m2); Glucose 145 mg/dL (74-106); HDL Cholesterol 41 mg/dL (>or=50); Potassium 3.3 mmol/L (3.5-5.1); Sodium 135 mmol/L (136-145); Triglyceride 341 mg/dL (<150)
[2024-09-03 17:47] LABS: Microalb ug/mg Crea 51.5 ug/mg Cr
[2024-09-04 00:05] LABS: HIV-1/2 Ag & Ab Screen Negative (Negative)
[2024-09-04 00:22] LABS: Hepatitis C Ab w Rflx HCV PCR Negative (Negative)
== END 2024-09-03 19:03 | disposition home or self-care (01) ==
LOC: NCHCN 19:02
PROVIDERS: Visit Provider Family Medicine
DX: I10 Essential (primary) hypertension (principal); Z11.59 Encounter for screening for other viral diseases; Z11.4 Encounter for screening for human immunodeficiency virus [HIV]; E11.9 Type 2 diabetes mellitus without complications
CPT/HCPCS: 80048; 80061; 86803; 87389; 82043; 82570

== ENCOUNTER 2024-10-13 12:42 | Outpatient (REF) | payer MEDICARE, SELFPAY ==
[2024-10-13 15:58] LABS: Anion Gap 6.4 mmol/L (3-11); BUN 22 mg/dL (7-18); CO2 32.6 mmol/L (21.0-32.0); Calcium 9.5 mg/dL (8.5-10.1); Chloride 102 mmol/L (98-107); Estimated GFR 63.70 (mL/min/1.73m2); Glucose 180 mg/dL (74-106); Potassium 4.1 mmol/L (3.5-5.1); Sodium 141 mmol/L (136-145)
== END 2024-10-13 12:43 | disposition home or self-care (01) ==
LOC: NCHCN 12:42
PROVIDERS: PCP Family Medicine; Visit Provider Family Medicine
DX: E87.1 Hypo-osmolality and hyponatremia (principal)
CPT/HCPCS: 80048

== ENCOUNTER 2024-12-15 20:42 | Outpatient (REF) | payer MEDICARE, SELFPAY ==
[2024-12-15 21:32] LABS: Glucose Negative (Negative)
[2024-12-15 21:56] LABS: C & S Indicated? No; RBC 0-2 HPF (0-2)
== END 2024-12-15 20:43 | disposition home or self-care (01) ==
LOC: NCHCN 20:42
PROVIDERS: PCP Family Medicine; Visit Provider Family Medicine
DX: R30.0 Dysuria (principal)
CPT/HCPCS: 81003; 81015

== ENCOUNTER 2025-01-27 10:16 | Outpatient (REF) | payer MEDICARE, SELFPAY ==
[2025-01-27 15:43] LABS: HCT 47.0 % (36.0-46.0); HGB 15.7 g/dL (11.2-15.7); MCH 30.6 pg (27.0-33.0); MCHC 33.4 % (32.0-36.0); MCV 92 fL (80-95); MPV 10.6 fL (8.0-11.0); Platelet Count 317 10^3/uL (130-400); RBC 5.13 10^6/uL (3.93-5.22); RDW 13.6 % (11.7-14.6); RDW-SD 44.7 fL; WBC 8.25 10^3/uL (4.4-10.8)
[2025-01-27 16:06] LABS: ALT 23 U/L (10-49); AST 19 U/L (<34); Albumin 4.5 g/dL (3.4-5.0); Alkaline Phosphatase 71 U/L (46-116); Anion Gap 10.8 mmol/L (3-11); BUN 16 mg/dL (9-23); Bilirubin, Total 0.50 mg/dL (0.2-1.2); CO2 29.4 mmol/L (20.0-31.0); Calcium 9.7 mg/dL (8.3-10.6); Chloride 99 mmol/L (98-107); Glucose 128 mg/dL (74-106); Potassium 4.1 mmol/L (3.5-5.1); Sodium 139 mmol/L (136-145); Total Protein 6.9 g/dL (5.7-8.2)
== END 2025-01-27 10:17 | disposition home or self-care (01) ==
LOC: NCHCN 10:16
PROVIDERS: PCP Family Medicine; Visit Provider Family Medicine
DX: M06.9 Rheumatoid arthritis, unspecified (principal)
CPT/HCPCS: 80053; 85027